=== PATIENT | male | born 1965 | race Caucasian/White ===

== ENCOUNTER 2017-06-05 11:34 | Inpatient (IN) | payer SELFPAY ==
[~2017-06-05] VITALS: Ht 172.7 cm; Wt 97.9 kg
[2017-06-05] VITALS (11 sets, daily range): BP systolic 66–122; BP diastolic 50–79; PULSE 87–109; RESP 20–38; TEMP 97.5–97.9; O2SAT 94–99
[~2017-06-05 11:34] MED LIST: TRAM50 PO
[2017-06-05] MEDS ORDERED: SODIUM CHLOR 0.9% 1000 ML INJ 1,000 ML IV SCH ×3 (12:02→13:26)
[2017-06-05] MEDS ORDERED: NOREPINEPHRINE 4 MG/4 ML AMP ONE (12:13)
[2017-06-05] MEDS ORDERED: PANTOPRAZOLE SODIUM 40 MG VIAL IVP ONE (12:15)
[2017-06-05] MEDS ORDERED: SODIUM CHLORIDE 0.9% FLUSH 10 ML FLUSH IVF PRN (12:15)
[2017-06-05] MEDS ORDERED: NITROGLYCERIN 0.4 MG SL 25 TABS/BTL SL SCH (12:15)
[2017-06-05] MEDS ORDERED: ASPIRIN 81 MG CHEW TAB PO ONE (12:15)
[2017-06-05] MEDS ORDERED: DOPamine 400 MG/250 ML INJ 250 ML ONE (12:16)
[2017-06-05] MEDS: NOREPINEPHRINE INJ 4 MG in SODIUM CHLOR 0.9% 250 ML INJ 246 ML IV PRN ×2 (12:20→22:09)
--- NOTE | 2017-06-05 12:23 | PD ---
HPI Chief Complaint: General Weakness Time Seen by Provider: 11:59 Travel History International Travel<30 days: No Contact w/Intl Traveler<30days: No Traveled to known affect area: No History of Present Illness HPI This is a 52-year-old male who reports a history of hypertension. He presents with his by private vehicle for evaluation. Reports that since yesterday morning he has felt generalized weakness and fatigue. His says that he spent most of the day laying in bed. Last night he began developing a substernal chest burning sensation when he describes as heartburn and assume that it was heartburn. He took some Tums which seemed to help a little bit. He reports that throughout the night and this morning he had intermittent pain. He reports that at some point in the middle the night he had a nosebleed from his left nostril which lasted for a few hours and is currently resolved. He is continued to feel generalized weakness and tiredness and this is what prompted evaluation. He is currently complaining of chest burning sensation, shortness of breath, some nausea. He denies abdominal pain, black or tarry stools. He reports that he occasionally uses [id number] Tums, ibuprofen, Tylenol products. PFSH Past Medical History Diminished Hearing: No GERD: Yes Inguinal Hernia: Yes Past Surgical History Abdominal Surgery: Yes (2 x hernia) Tonsillectomy: Yes Other Surgery: Yes (2 INGUINAL HERNIA SURGERIES APPROX. 2003) Social History Alcohol Use: No Tobacco Use: No Substance Use: Yes (IV meth) Allergies-Medications (Allergen,Severity, Reaction): Coded Allergies: No Known Allergies (Verified , 01/18/15) Reported Meds & Prescriptions Reported Meds & Active Scripts Active No Active Prescriptions or Reported Medications Review of Systems Except as stated in HPI: all other systems reviewed are Neg Physical Exam Narrative GENERAL: This is a ill-appearing middle-aged male. SKIN: Warm and dry. HEAD: Atraumatic. Normocephalic. EYES: Pupils equal and round. No scleral icterus. No injection or drainage. ENT: No nasal bleeding or discharge. Mucous membranes pink and moist. NECK: Trachea midline. No JVD. CARDIOVASCULAR: Regular rate and rhythm. No murmur appreciated. RESPIRATORY: No accessory muscle use. Clear to auscultation. Breath sounds equal bilaterally. GASTROINTESTINAL: Abdomen soft, non-tender, nondistended. Hepatic and splenic margins not palpable. MUSCULOSKELETAL: No obvious deformities. No clubbing. No cyanosis. No edema. NEUROLOGICAL: Awake and alert. No obvious cranial nerve deficits. Motor grossly within normal limits. Normal speech. PSYCHIATRIC: Appropriate mood and affect; insight and judgment normal. Data Data Last Documented VS Vital Signs Date Time Temp Pulse Resp B/P (MAP) Pulse Ox O2 Delivery O2 Flow Rate FiO2 06/05/17 13:10 96 90/60 (70) 06/05/17 12:16 28 96 06/05/17 12:07 Nasal Cannula 2.00 Orders Orders Electrocardiogram (06/05/17 12:02) Ckmb (Isoenzyme) Profile (06/05/17 12:02) Complete Blood Count With Diff (06/05/17 12:02) Magnesium (Mg) (06/05/17 12:02) Prothrombin Time / Inr (Pt) (06/05/17 12:02) Act Partial Throm Time (Ptt) (06/05/17 12:02) Troponin I (06/05/17 12:02) Chest, Single Ap (06/05/17 12:02) Ecg Monitoring (06/05/17 12:02) Bilateral Bp Monitoring (06/05/17 12:02) Iv Access Insert/Monitor (06/05/17 12:02) Oximetry (06/05/17 12:02) Oxygen Administration (06/05/17 12:02) Aspirin Chew (Aspirin Chew) (06/05/17 12:15) Sodium Chloride 0.9% Flush (Ns Flush) (06/05/17 12:15) Nitroglycerin Sl (Nitrostat Sl) (06/05/17 12:15) Type And Screen (06/05/17 12:02) Lactic Acid (06/05/17 12:02) Sodium Chlor 0.9% 1000 Ml Inj (Ns 1000 M (06/05/17 12:02) Comprehensive Metabolic Panel (06/05/17 12:02) Lipase (06/05/17 12:02) Pantoprazole Inj (Protonix Inj) (06/05/17 12:15) Norepinephrine Inj (Levophed Inj) (06/05/17 12:13) Dopamine 400 Mg/250 Ml Inj (Dopamine 400 (06/05/17 12:16) I-Stat Profile (06/05/17 12:18) Sodium Chlor 0.9% 1000 Ml Inj (Ns 1000 M (06/05/17 12:18) Red Blood Cells (Rbc) (06/05/17 12:19) Blood Product Administration (06/05/17 12:19) Ct Thorax/ Chest Wo Iv Contras (06/05/17 ) Ct Abd/Pel W/O Iv Contrast (06/05/17 ) Ct Brain W/O Iv Contrast(Rout) (06/05/17 ) Urinalysis - C+S If Indicated (06/05/17 12:44) Blood Culture (06/05/17 12:44) Vancomycin Inj (Vancomycin Inj) (06/05/17 12:45) Piperacil-Tazo 3.375 Gm Premix (Zosyn 3. (06/05/17 12:45) ^ Infusion (06/05/17 ) Norepinephrine Inj (Levophed Inj) (06/05/17 13:00) Terbutaline Inj (Brethine Inj) (06/05/17 13:00) Piperacil-Tazo 2.25 Gm Premix (Zosyn 2.2 (06/05/17 13:00) CKMB (06/05/17 12:20) CKMB% (06/05/17 12:20) Admit Order (Ed Use Only) (06/05/17 13:10) Labs Laboratory Tests Test 06/05/17 12:20 White Blood Count 16.3 TH/MM3 Red Blood Count 5.03 MIL/MM3 Hemoglobin 16.2 GM/DL Bedside Hemoglobin 15.3 G/DL Hematocrit 46.3 % Bedside Hematocrit 45.0 % Mean Corpuscular Volume 92.1 FL Mean Corpuscular Hemoglobin 32.2 PG Mean Corpuscular Hemoglobin Concent 35.0 % Red Cell Distribution Width 12.8 % Platelet Count 109 TH/MM3 Mean Platelet Volume 8.4 FL Neutrophils (%) (Auto) 94.2 % Lymphocytes (%) (Auto) 2.5 % Monocytes (%) (Auto) 3.3 % Eosinophils (%) (Auto) 0.0 % Basophils (%) (Auto) 0.0 % Neutrophils # (Auto) 15.3 TH/MM3 Lymphocytes # (Auto) 0.4 TH/MM3 Monocytes # (Auto) 0.5 TH/MM3 Eosinophils # (Auto) 0.0 TH/MM3 Basophils # (Auto) 0.0 TH/MM3 CBC Comment AUTO DIFF Differential Total Cells Counted 100 Neutrophils % (Manual) 60 % Band Neutrophils % 35 % Lymphocytes % 2 % Monocytes % 1 % Neutrophils # (Manual) 15.8 TH/MM3 Metamyelocytes 1 % Myelocytes 1 % Differential Comment FINAL DIFF MANUAL Platelet Estimate LOW Platelet Morphology Comment NORMAL Red Cell Morphology Comment NORMAL Prothrombin Time 13.0 SEC Prothromb Time International Ratio 1.3 RATIO Activated Partial Thromboplast Time 30.8 SEC Bedside Sodium 134 MMOL/L Blood Urea Nitrogen 42 MG/DL Creatinine 5.16 MG/DL Random Glucose 85 MG/DL Total Protein 7.2 GM/DL Albumin 3.3 GM/DL Calcium Level 8.7 MG/DL Magnesium Level 1.6 MG/DL Alkaline Phosphatase 109 U/L Aspartate Amino Transf (AST/SGOT) 130 U/L Alanine Aminotransferase (ALT/SGPT) 154 U/L Total Bilirubin 2.1 MG/DL Sodium Level 135 MEQ/L Potassium Level 4.6 MEQ/L Chloride Level 101 MEQ/L Carbon Dioxide Level 19.5 MEQ/L Bedside Potassium 4.6 MMOL/L Bedside Chloride 102 MMOL/L Anion Gap 15 MEQ/L Bedside Blood Urea Nitrogen 42 MG/DL Bedside Creatinine 5.3 MG/DL Estimat Glomerular Filtration Rate 12 ML/MIN Bedside Glucose 90 MG/DL Lactic Acid Level 2.7 mmol/L Total Creatine Kinase 935 U/L Creatine Kinase MB 8.0 NG/ML Creatine Kinase MB % 0.9 % Troponin I 0.15 NG/ML Lipase 99 U/L MDM Medical Decision Making Medical Screen Exam Complete: Yes Emergency Medical Condition: Yes Medical Record Reviewed: Yes Differential Diagnosis Aortic dissection, acute coronary syndrome, pulmonary embolism, pneumothorax, hemothorax, pleural effusion, dehydration, acute anemia Narrative Course The patient was noted to be markedly hypotensive in triage with a 66/51 left arm blood pressure. Upon arriving in his ED room his blood pressure was checked in the right arm and was 101/60. Unable to obtain a left arm blood pressure. The patient was placed on ECG monitoring pulse oximetry. A 12-lead EKG was obtained revealing sinus tachycardia with a rate of 101. No STEMI. Unable to establish peripheral IV line, Dr. Yanez placed a central line in the right femoral vein, please see his procedural note. Blood pressure was rechecked, right arm is 122/50, left arm is 89/55. the patient was started on 2 L of IV fluid bolus. Given the discrepancy in blood pressure levels, initially a CTA of the aorta was ordered. I stats were obtained revealing a creatinine over [address] order was changed to CT of the thorax and abdomen and pelvis without contrast. Started on Levophed drip. Upon further questioning the patient admits that he uses IV methamphetamines occasionally, most recently yesterday. Lab work is been reviewed. He does have leukocytosis with WBC count of 16.3, 94% neutrophils. Lactic acid 2.7, BUN 42, creatinine 5.16, the patient was given IV vancomycin and Zosyn for broad -spectrum antibiotic coverage. CT brain is normal. Troponin 0 0.15. Total CK is 935. AST 130 ALT 154 total bilirubin 2.1. patient will be admitted to the category analyst. Sepsis Criteria SIRS Criteria (2 or more): WBC > 12329, < 4000 or > 10% bands Severe Sepsis (+one): Hypotension, Acute Oliguria/Renal Failure Diagnosis Primary Impression: Septic shock Additional Impressions: Chest pain Renal failure IV drug user Elevated troponin Admitting Information Admitting Physician Requests: Admit Scripts No Active Prescriptions or Reported Meds Elfego Feliciano Jun 05, 2017 12:23
[2017-06-05 12:38] LABS: AUTOMATED NEUTROPHIL # 15.3 TH/MM3 (1.8-7.7); HEMATOCRIT 46.3 % (39.0-51.0); HEMOGLOBIN 16.2 GM/DL (13.0-17.0); LYMPH % 2.5 % (9.0-44.0); LYMPHOCYTE # 0.4 TH/MM3 (1.0-4.8); MEAN CELL VOLUME 92.1 FL (80.0-100.0); MEAN CORPUSCULAR HEMOGLOBIN 32.2 PG (27.0-34.0); MEAN PLATELET VOLUME 8.4 FL (7.0-11.0); MONO % 3.3 % (0.0-8.0); MONOCYTE # 0.5 TH/MM3 (0-0.9); NEUT % 94.2 % (16.0-70.0); PLATELET COUNT 109 TH/MM3 (150-450); RED BLOOD COUNT 5.03 MIL/MM3 (4.50-5.90); RED CELL DISTRIBUTION WIDTH 12.8 % (11.6-17.2); WHITE BLOOD COUNT 16.3 TH/MM3 (4.0-11.0)
[2017-06-05] MEDS ORDERED: VANCOMYCIN INJ 1,000 MG in SODIUM CHLOR 0.9% 250 ML INJ 250 ML IV ONE (12:45)
[2017-06-05] MEDS ORDERED: PIPERACIL-TAZO 3.375 GM PREMIX 50 ML IV ONE (12:45)
[2017-06-05 12:46] LABS: INTERNATIONAL NORMALIZED RATIO 1.3 RATIO
--- NOTE | 2017-06-05 12:49 | RADRPT ---
EXAM DATE/TIME: 06/05/2017 12:32 [facility] COMPARISON: CT BRAIN W/O CONTRAST, January 18, 2015, 17:43. INDICATIONS : Altered mental status. RADIATION DOSE: 47.35 CTDIvol (mGy) MEDICAL HISTORY : Non-responsive. SURGICAL HISTORY : Non-responsive. ENCOUNTER: Initial ACUITY: 1 day PAIN SCALE: 0/10 LOCATION: cranial TECHNIQUE: Multiple contiguous axial images were obtained of the head. Using automated exposure control and adj ustment of the mA and/or kV according to patient size, radiation dose was kept as low as reasonably a chievable to obtain optimal diagnostic quality images. DICOM format image data is available electro nically for review and comparison. FINDINGS: CEREBRUM: The ventricles are normal for age. No evidence of midline shift, mass lesion, hemorrhage or acute in farction. No extra-axial fluid collections are seen. POSTERIOR FOSSA: The cerebellum and brainstem are intact. The 4th ventricle is midline. The cerebellopontine angle i s unremarkable. EXTRACRANIAL: The visualized portion of the orbits is intact. SKULL: The calvaria is intact. No evidence of skull fracture. CONCLUSION: Stable negative noncontrast head CT. Marlon Jo MD on June 05, 2017 at 12:47 Board Certified Radiologist. This report was verified electronically.
[2017-06-05 12:58] LABS: ALBUMIN 3.3 GM/DL (3.4-5.0); ALT (GPT) 154 U/L (12-78); AST (GOT) 130 U/L (15-37); BICARBONATE 19.5 MEQ/L (21.0-32.0); BLOOD UREA NITROGEN 42 MG/DL (7-18); CALCIUM 8.7 MG/DL (8.5-10.1); CHLORIDE 101 MEQ/L (98-107); CREATININE 5.16 MG/DL (0.60-1.30); GLOMERULAR FILTRATION RATE 12 ML/MIN (>89); GLUCOSE,RANDOM 85 MG/DL (74-106); MAGNESIUM 1.6 MG/DL (1.5-2.5); SODIUM (NA) 135 MEQ/L (136-145)
--- NOTE | 2017-06-05 12:58 | RADRPT ---
EXAM DATE/TIME: 06/05/2017 12:35 [facility] COMPARISON: CHEST SINGLE AP, January 18, 2015, 17:15. INDICATIONS : Generalized weakness and chest pain. RADIATION DOSE: 19.69 CTDIvol (mGy) ; Combined studies - Thorax/Abdomen/Pelvis MEDICAL HISTORY : Non-responsive. SURGICAL HISTORY : Non-responsive. ENCOUNTER: Initial ACUITY: 1 day PAIN SCALE: 3/10 LOCATION: chest TECHNIQUE: Volumetric scanning of the chest was performed. Using automated exposure control and adjustment of t he mA and/or kV according to patient size, radiation dose was kept as low as reasonably achievable to obtain optimal diagnostic quality images. DICOM format image data is available electronically for r eview and comparison. Follow-up recommendations for detected pulmonary nodules are based at a minimum on nodule size and pa tient risk factors according to Fleischner Society Guidelines. FINDINGS: LUNGS: There is no consolidation or pneumothorax. No concerning pulmonary nodule is visualized. There is ap parent atelectasis in the dependent portions of the lung bases. PLEURAE: There is no pleural thickening or pleural effusion. MEDIASTINUM: The heart and great vessels demonstrate no acute abnormality. There is no mediastinal or hilar lymph adenopathy. Small amount of air is noted in the anterior right ventricle and aorta. AXILLAE: Within normal limits. No lymphadenopathy. MUSCULOSKELETAL: Within normal limits for patient age. MISCELLANEOUS: The visualized upper abdominal organs demonstrate no acute abnormality. Mild hepatic steatosis is pre sent. CONCLUSION: 1. Apparent atelectasis in the tension portions of the lungs with no focal consolidation or mass. 2. Small amount of gas in the anterior right ventricle and aorta likely iatrogenic. 3. Mild hepatic steatosis. Marlon Jo MD on June 05, 2017 at 12:54 Board Certified Radiologist. This report was verified electronically.
--- NOTE | 2017-06-05 12:59 | PD ---
Physical Exam Narrative Patient was seen by me and my patient support assistant. Patient states that he was shooting up IV meth last night. Data Data Last Documented VS Vital Signs Date Time Temp Pulse Resp B/P (MAP) Pulse Ox O2 Delivery O2 Flow Rate FiO2 06/05/17 12:21 87 89/55 (66) 06/05/17 12:16 28 96 06/05/17 12:07 Nasal Cannula 2.00 Orders Orders Electrocardiogram (06/05/17 12:02) Ckmb (Isoenzyme) Profile (06/05/17 12:02) Complete Blood Count With Diff (06/05/17 12:02) Magnesium (Mg) (06/05/17 12:02) Prothrombin Time / Inr (Pt) (06/05/17 12:02) Act Partial Throm Time (Ptt) (06/05/17 12:02) Troponin I (06/05/17 12:02) Chest, Single Ap (06/05/17 12:02) Ecg Monitoring (06/05/17 12:02) Bilateral Bp Monitoring (06/05/17 12:02) Iv Access Insert/Monitor (06/05/17 12:02) Oximetry (06/05/17 12:02) Oxygen Administration (06/05/17 12:02) Aspirin Chew (Aspirin Chew) (06/05/17 12:15) Sodium Chloride 0.9% Flush (Ns Flush) (06/05/17 12:15) Nitroglycerin Sl (Nitrostat Sl) (06/05/17 12:15) Type And Screen (06/05/17 12:02) Lactic Acid (06/05/17 12:02) Sodium Chlor 0.9% 1000 Ml Inj (Ns 1000 M (06/05/17 12:02) Comprehensive Metabolic Panel (06/05/17 12:02) Lipase (06/05/17 12:02) Pantoprazole Inj (Protonix Inj) (06/05/17 12:15) Norepinephrine Inj (Levophed Inj) (06/05/17 12:13) Dopamine 400 Mg/250 Ml Inj (Dopamine 400 (06/05/17 12:16) I-Stat Profile (06/05/17 12:18) Sodium Chlor 0.9% 1000 Ml Inj (Ns 1000 M (06/05/17 12:18) Red Blood Cells (Rbc) (06/05/17 12:19) Blood Product Administration (06/05/17 12:19) Ct Thorax/ Chest Wo Iv Contras (06/05/17 ) Ct Abd/Pel W/O Iv Contrast (06/05/17 ) Ct Brain W/O Iv Contrast(Rout) (06/05/17 ) Urinalysis - C+S If Indicated (06/05/17 12:44) Blood Culture (06/05/17 12:44) Vancomycin Inj (Vancomycin Inj) (06/05/17 12:45) Piperacil-Tazo 3.375 Gm Premix (Zosyn 3. (06/05/17 12:45) ^ Infusion (06/05/17 ) Norepinephrine Inj (Levophed Inj) (06/05/17 13:00) Terbutaline Inj (Brethine Inj) (06/05/17 13:00) Piperacil-Tazo 2.25 Gm Premix (Zosyn 2.2 (06/05/17 13:00) Labs Laboratory Tests Test 06/05/17 12:20 White Blood Count 16.3 TH/MM3 Red Blood Count 5.03 MIL/MM3 Hemoglobin 16.2 GM/DL Bedside Hemoglobin 15.3 G/DL Hematocrit 46.3 % Bedside Hematocrit 45.0 % Mean Corpuscular Volume 92.1 FL Mean Corpuscular Hemoglobin 32.2 PG Mean Corpuscular Hemoglobin Concent 35.0 % Red Cell Distribution Width 12.8 % Platelet Count 109 TH/MM3 Mean Platelet Volume 8.4 FL Neutrophils (%) (Auto) 94.2 % Lymphocytes (%) (Auto) 2.5 % Monocytes (%) (Auto) 3.3 % Eosinophils (%) (Auto) 0.0 % Basophils (%) (Auto) 0.0 % Neutrophils # (Auto) 15.3 TH/MM3 Lymphocytes # (Auto) 0.4 TH/MM3 Monocytes # (Auto) 0.5 TH/MM3 Eosinophils # (Auto) 0.0 TH/MM3 Basophils # (Auto) 0.0 TH/MM3 CBC Comment AUTO DIFF Prothrombin Time 13.0 SEC Prothromb Time International Ratio 1.3 RATIO Activated Partial Thromboplast Time 30.8 SEC Bedside Sodium 134 MMOL/L Blood Urea Nitrogen 42 MG/DL Creatinine 5.16 MG/DL Random Glucose 85 MG/DL Albumin 3.3 GM/DL Calcium Level 8.7 MG/DL Magnesium Level 1.6 MG/DL Aspartate Amino Transf (AST/SGOT) 130 U/L Alanine Aminotransferase (ALT/SGPT) 154 U/L Sodium Level 135 MEQ/L Potassium Level 4.6 MEQ/L Chloride Level 101 MEQ/L Carbon Dioxide Level 19.5 MEQ/L Bedside Potassium 4.6 MMOL/L Bedside Chloride 102 MMOL/L Anion Gap 15 MEQ/L Bedside Blood Urea Nitrogen 42 MG/DL Bedside Creatinine 5.3 MG/DL Estimat Glomerular Filtration Rate 12 ML/MIN Bedside Glucose 90 MG/DL Lactic Acid Level 2.7 mmol/L Lipase 99 U/L [facility] Supervised Visit with DANIELA: Yes Narrative Course Patient presented by private vehicle to the emergency room complains of generalized malaise and weakness, indigestion, nosebleed. Patient was dusky, hypotensive, altered mental status. Denies alcohol or drug abuse. Patient has history hypertension however not on any medication. Normal saline solution 2 L IV bolus. O2 2 L nasal cannula. Triple-lumen right femoral vein inserted. Vancomycin 1 g IV. Zosyn 2.25 g IV. Patient has stat CT scan of brain, chest and abdomen. Levophed IV drip started. Dopamine drip as necessary to keep the MAP above 65. 1300 p.m. Patient now admitted to IV drug abuse. Patient states that he was shooting up methamphetamine last night. Critical Care Narrative Aggregate critical care time was 60 minutes. Time to perform other separately billable procedures was not included in the critical care time. My time did not include minutes spent treating any other patients simultaneously or on activities that did not directly contribute to the patient's treatment. The services I provided to this patient were to treat and/or prevent clinically significant deterioration that could result in: I provided critical care services requiring my management, as noted below: Chart data review, documentation time, medication orders and management, vital sign assessments/reviewing monitor data, ordering and reviewing lab tests, ordering and interpreting/reviewing x-rays and diagnostic studies, care of the patient and discussion of the patient with the admitting physicians. Procedures Procedure Narrative CENTRAL VENOUS LINE: The site was prepped with Betadine and sterilely draped. It was infiltrated with 1% lidocaine plain. The deep vein was cannulated using normal Seldinger technique. A triple lumen central line was placed in the right femoral vein site and secured with simple interrupted suture. The site was sterilely dressed. The patient tolerated the procedure well. Diagnosis Primary Impression: Septic shock Additional Impression: IV drug abuse Scripts No Active Prescriptions or Reported Meds Misael Yanez MD Jun 05, 2017 12:59
[2017-06-05] MEDS ORDERED: TERBUTALINE INJ 1 MG/ML AMP SQ PRN (13:00)
[2017-06-05 13:02] LABS: ALKALINE PHOSPHATASE 109 U/L (45-117); TOTAL BILIRUBIN ADULT 2.1 MG/DL (0.2-1.0); TOTAL PROTEIN 7.2 GM/DL (6.4-8.2); TROPONIN I 0.15 NG/ML (0.02-0.05)
--- NOTE | 2017-06-05 13:03 | RADRPT ---
EXAM DATE/TIME: 06/05/2017 12:35 [facility] COMPARISON: No previous studies available for comparison. INDICATIONS : Weakness. ORAL CONTRAST: No oral contrast ingested. RADIATION DOSE: 19.69 CTDIvol (mGy) ; Combined studies - Thorax/Abdomen/Pelvis MEDICAL HISTORY : Non-responsive. SURGICAL HISTORY : Non-responsive. ENCOUNTER: Initial ACUITY: 1 day PAIN SCALE: 4/10 LOCATION: abdomen TECHNIQUE: Volumetric scanning of the abdomen and pelvis was performed. Using automated exposure control and ad justment of the mA and/or kV according to patient size, radiation dose was kept as low as reasonably achievable to obtain optimal diagnostic quality images. DICOM format image data is available electro nically for review and comparison. FINDINGS: LOWER LUNGS: The visualized lower lungs are clear except for apparent atelectasis in the dependent portions of the lung bases.. Small gamma gas is noted in the anterior right ventricle. LIVER: Homogeneous density without lesion. There is mild hepatic steatosis. There is no dilation of the bili santiago tree. No calcified gallstones. SPLEEN: Normal size without lesion. PANCREAS: Within normal limits. KIDNEYS: Normal in size and shape. There is no solid mass, stone, or hydronephrosis. There is a simple cyst e xtending off the posterior left kidney. ADRENAL GLANDS: Within normal limits. VASCULAR: There is no aortic aneurysm. BOWEL/MESENTERY: No oral contrast was given limiting sensitivity. There are scattered diverticuli greatest in the sigm oid colon. The stomach, small bowel, and colon demonstrate no acute abnormality. There is no free in traperitoneal air or fluid. ABDOMINAL WALL: Postsurgical changes are noted status post hernia repair with mesh in place. There is no abdominal wa ll hernia. RETROPERITONEUM: There is no lymphadenopathy. BLADDER: No wall thickening or mass. REPRODUCTIVE: Within normal limits. INGUINAL: There is no lymphadenopathy or hernia. MUSCULOSKELETAL: Within normal limits for patient age. CONCLUSION: 1. Mild diverticulosis with no definite inflammatory change. 2. Small amount of gas in the anterior right ventricle likely iatrogenic. 3. Mild hepatic steatosis. 4. Unremarkable gallbladder. 5. Apparent atelectasis in the dependent portions of the lung bases. Marlon oJ MD on June 05, 2017 at 13:00 Board Certified Radiologist. This report was verified electronically.
[2017-06-05 13:07] LABS: BANDS 35 % (0-6); LYMPHOCYTES 2 % (9-44); METAMYELOCYTES 1 % (0-1); MONOCYTES 1 % (0-8); MYELOCYTES 1 % (0-0); NEUTROPHIL # MANUAL DIFF 15.8 TH/MM3 (1.8-7.7); POLYS (SEG NEUTROPHILS) 60 % (16-70)
[2017-06-05] MEDS ORDERED: SODIUM CHLOR 0.9% 1000 ML INJ 1,000 ML IV ONE (13:45)
[2017-06-05] MEDS ORDERED: CHLORHEXIDINE GLUCONATE 2 % 1 PACK (2 CLOTHS) TOP PRN (13:45)
[2017-06-05] MEDS ORDERED: Vancomycin Consult Pharmacy 1 EA OTHER SCH (13:45)
[2017-06-05] MEDS ORDERED: NURSING INFORMATION XX SCH (13:45)
[2017-06-05] MEDS ORDERED: SODIUM CHLORID 0.9% 500 ML INJ 500 ML IV ONE (13:45)
--- NOTE | 2017-06-05 13:51 | RADRPT ---
EXAM DATE/TIME: 06/05/2017 13:01 [facility] COMPARISON: CHEST SINGLE AP, January 18, 2015, 17:15. INDICATIONS : Shortness of breath. MEDICAL HISTORY : None. SURGICAL HISTORY : None. ENCOUNTER: Initial ACUITY: 2 days PAIN SCORE: 0/10 LOCATION: Bilateral chest FINDINGS: A single view of the chest demonstrates the lungs to be symmetrically aerated without evidence of mas s, infiltrate or effusion. The cardiomediastinal contours are unremarkable. Osseous structures are intact. CONCLUSION: No acute disease. Fritz Huerta MD on June 05, 2017 at 13:49 Board Certified Radiologist. This report was verified electronically.
[2017-06-05] MEDS ORDERED: PIPERACIL-TAZO 2.25 GM PREMIX 50 ML IV ONE (14:00)
--- NOTE | 2017-06-05 14:02 | HHI.HP ---
HPI Service Critical Care Medicine Primary Care Physician No Primary Care Physician Admission Diagnosis Septic shock. Acute kidney injury. Elevated troponin. Diagnosis: Chief Complaint: Generalized weakness Travel History International Travel<30 Days: No Contact w/Intl Traveler <30 Da: No Traveled to Known Affected Are: No History of Present Illness 52-year-old gentleman with history of hypertension, now presents to ED complaining of generalized weakness, body aches and fatigue. Patient states that he is not feeling well over the last 2 days, worsening last night. He reports some substernal chest pain described as heartburn associated with fever , chills, some dry cough. Because of the worsening of symptoms he was brought in to the emergency room by his . On ED arrival, patient was profoundly hypotensive with systolic blood pressure in the 60s. He was given 2 L fluid bolus, an emergent femoral central line was placed and patient was started on norepinephrine. On routine labs he was found to have SANTOS and lactic acidosis. He was given vancomycin and Zosyn and [facility] was consulted for ICU admission. Of note, patient used methamphetamine last night. Patient was seen in ED, resting in bed, ill-appearing, complaining of chills. He is currently on norepinephrine infusion at 10 mics per minute. Review of Systems Constitutional: COMPLAINS OF: Diaphoretic episodes, Fatigue, Fever, Chills Eyes: DENIES: Blurred vision, Diplopia, Vision loss Ears, nose, mouth, throat: COMPLAINS OF: Epistaxis, DENIES: Hearing loss, Throat pain Respiratory: COMPLAINS OF: Cough, Shortness of breath, DENIES: Wheezing, Hemoptysis, Sputum production Cardiovascular: COMPLAINS OF: Chest pain, DENIES: Palpitations, Lower Extremity Edema Gastrointestinal: COMPLAINS OF: Diarrhea, DENIES: Abdominal pain, Black stools , Bloody stools, Constipation, Nausea, Vomiting Genitourinary: DENIES: Urinary frequency, Dysuria Musculoskeletal: COMPLAINS OF: Joint pain, Muscle aches Psychiatric: COMPLAINS OF: Anxiety, DENIES: Hallucinations, Agitation Past Family Social History Allergies: Coded Allergies: No Known Allergies (Verified Allergy, Unknown, 06/05/17) Physical Exam Vital Signs Vital Signs Date Time Temp Pulse Resp B/P (MAP) Pulse Ox O2 Delivery O2 Flow Rate FiO2 06/05/17 13:48 87 108/79 (89) 06/05/17 13:35 91 20 97/68 (78) 97 Nasal Cannula 2.00 06/05/17 13:10 96 90/60 (70) 06/05/17 12:21 87 89/55 (66) 06/05/17 12:20 87 102/57 06/05/17 12:19 97 122/50 (74) 06/05/17 12:16 28 96 06/05/17 12:07 98 Nasal Cannula 2.00 06/05/17 11:47 105 22 66/51 (56) 94 Physical Exam General - middle-aged gentleman, weak, ill-appearing HEENT - pupils equal, reactive, sclerae anicteric, neck supple, no nuchal rigidity, neck veins not distended, no carotid bruit CV - regular S1, S2, no murmurs Chest - clear b/l, good air entry, no wheezes Abdomen - soft, non-tender, non-distended, BS present, no hepatomegaly, no splenomegaly Skin - no rashes, no cyanosis Extremities - warm and well perfused, no edema, + peripheral pulses, no clubbing Neuro - awake, alert, oriented, motor 5 out of 5 overall extremities Laboratory Laboratory Tests Test 06/05/17 12:20 White Blood Count 16.3 Red Blood Count 5.03 Hemoglobin 16.2 Bedside Hemoglobin 15.3 Hematocrit 46.3 Bedside Hematocrit 45.0 Mean Corpuscular Volume 92.1 Mean Corpuscular Hemoglobin 32.2 Mean Corpuscular Hemoglobin Concent 35.0 Red Cell Distribution Width 12.8 Platelet Count 109 Mean Platelet Volume 8.4 Neutrophils (%) (Auto) 94.2 Lymphocytes (%) (Auto) 2.5 Monocytes (%) (Auto) 3.3 Eosinophils (%) (Auto) 0.0 Basophils (%) (Auto) 0.0 Neutrophils # (Auto) 15.3 Lymphocytes # (Auto) 0.4 Monocytes # (Auto) 0.5 Eosinophils # (Auto) 0.0 Basophils # (Auto) 0.0 CBC Comment AUTO DIFF Differential Total Cells Counted 100 Neutrophils % (Manual) 60 Band Neutrophils % 35 Lymphocytes % 2 Monocytes % 1 Neutrophils # (Manual) 15.8 Metamyelocytes 1 Myelocytes 1 Differential Comment FINAL DIFF MANUAL Platelet Estimate LOW Platelet Morphology Comment NORMAL Red Cell Morphology Comment NORMAL Prothrombin Time 13.0 Prothromb Time International Ratio 1.3 Activated Partial Thromboplast Time 30.8 Bedside Sodium 134 Blood Urea Nitrogen 42 Creatinine 5.16 Random Glucose 85 Total Protein 7.2 Albumin 3.3 Calcium Level 8.7 Magnesium Level 1.6 Alkaline Phosphatase 109 Aspartate Amino Transf (AST/SGOT) 130 Alanine Aminotransferase (ALT/SGPT) 154 Total Bilirubin 2.1 Sodium Level 135 Potassium Level 4.6 Chloride Level 101 Carbon Dioxide Level 19.5 Bedside Potassium 4.6 Bedside Chloride 102 Anion Gap 15 Bedside Blood Urea Nitrogen 42 Bedside Creatinine 5.3 Estimat Glomerular Filtration Rate 12 Bedside Glucose 90 Lactic Acid Level 2.7 Total Creatine Kinase 935 Creatine Kinase MB 8.0 Creatine Kinase MB % 0.9 Troponin I 0.15 Lipase 99 Result Diagram: 06/05/17 1220 06/05/17 1220 Imaging Last Impressions Chest X-Ray 06/05/17 1202 Signed Impressions: Service Date/Time: May 13:01 - CONCLUSION: No acute disease. Fritz Huerta MD Head CT 06/05/17 0000 Signed Impressions: Service Date/Time: May 12:32 - CONCLUSION: Stable negative noncontrast head CT. Marlon Jo MD Chest CT 06/05/17 0000 Signed Impressions: Service Date/Time: May 12:35 - CONCLUSION: 1. Apparent atelectasis in the tension portions of the lungs with no focal consolidation or mass. 2. Small amount of gas in the anterior right ventricle and aorta likely iatrogenic. 3. Mild hepatic steatosis. Marlon Jo MD Abdomen/Pelvis CT 06/05/17 0000 Signed Impressions: Service Date/Time: May 12:35 - CONCLUSION: 1. Mild diverticulosis with no definite inflammatory change. 2. Small amount of gas in the anterior right ventricle likely iatrogenic. 3. Mild hepatic steatosis. 4. Unremarkable gallbladder. 5. Apparent atelectasis in the dependent portions of the lung bases. Marlon Jo MD Septic Shock Reassessment Septic shock perfusion: reassessment completed Caprini VTE Risk Assessment Caprini VTE Risk Assessment: Mod/High Risk (score >= 2) Caprini Risk Assessment Model Point Value = 1 Point Value = 2 Point Value = 3 Point Value = 5 Age 41-60 Minor surgery BMI > 25 kg/m2 Swollen legs Varicose veins or History of unexplained or recurrent spontaneous Oral contraceptives or hormone replacement Sepsis (< 1 month) Serious lung disease, including pneumonia (< 1 month) Abnormal pulmonary function Acute myocardial infarction Congestive heart failure (< 1 month) History of inflammatory bowel disease Medical patient at bed rest Age 61-74 Arthroscopic surgery Major open surgery (> 45 min) Laparoscopic surgery (> 45 min) Malignancy Confined to bed (> 72 hours) Immobilizing plaster cast Central venous access Age >= 75 History of VTE Family history of VTE Factor V Leiden Prothrombin [id number] Lupus anticoagulant Anticardiolipin antibodies Elevated serum homocysteine Heparin-induced thrombocytopenia Other congenital or acquired thrombophilia Stroke (< 1 month) Elective arthroplasty Hip, pelvis, or leg fracture Acute spinal cord injury (< 1 month) Prophylaxis Regimen Total Risk Factor Score Risk Level Prophylaxis Regimen 0-1 Low Early ambulation 2 Moderate Order ONE of the following: *Sequential Compression Device (SCD) *Heparin 5000 units SQ BID 3-4 Higher Order ONE of the following medications: *Heparin 5000 units SQ TID *Enoxaparin/Lovenox 40 mg SQ daily (WT < 150 kg, CrCl > 30 mL/min) *Enoxaparin/Lovenox 30 mg SQ daily (WT < 150 kg, CrCl > 10-29 mL/min) *Enoxaparin/Lovenox 30 mg SQ BID (WT < 150 kg, CrCl > 30 mL/min) AND/OR *Sequential Compression Device (SCD) 5 or more Highest Order ONE of the following medications: *Heparin 5000 units SQ TID (Preferred with Epidurals) *Enoxaparin/Lovenox 40 mg SQ daily (WT < 150 kg, CrCl > 30 mL/min) *Enoxaparin/Lovenox 30 mg SQ daily (WT < 150 kg, CrCl > 10-29 mL/min) *Enoxaparin/Lovenox 30 mg SQ BID (WT < 150 kg, CrCl > 30 mL/min) AND *Sequential Compression Device (SCD) Assessment and Plan Assessment and Plan 1. Circulatory shock, likely septic 2. Unclear source of infection at this time but based on the history of IV drug use suspect bacteremia 3. SANTOS 4. Lactic acidosis 5. Small amount of air in the right ventricle and aorta - 6. Meth abuse 1. Give additional 1 L fluid bolus followed by maintenance IV fluids 2. Continue renal dose vancomycin and Zosyn 3. Send additional blood cultures 4. Serial lactic acid and check venous blood gas 5. Cardiothoracic consultation 6. Serial cardiac enzymes and echocardiogram 7. Monitor urine output 8. N.p.o. for now 9. If no improvement in renal function will consult nephrology 10. GI prophylaxis with pantoprazole 11. DVT prophylaxis with heparin Patient is critically ill with shock, SANTOS, lactic acidosis and he is at very high risk for further decompensation. I spent 33 minutes of critical care time, excluding procedures, managing fluids , pressors, antibiotics, reviewing data and ordering labs, discussing with nursing staff and family present at bedside. Addendum: Patient was reassessed on ICU arrival, feels better, norepinephrine drip currently at 8 mcg/min. Lactic acid at 2.4, trending down, troponin at 0.1. Additional fluid bolus is being given right now, serial labs ordered. Continue current management as mentioned above. Echo ordered and case discussed with cardiothoracic nurse practitioner. Chico Garland MD Jun 05, 2017 14:02
[2017-06-05] MEDS: PIPERACIL-TAZO 2.25 GM PREMIX 50 ML IV SCH ×2 (15:11→20:42)
[2017-06-05 15:50] LABS: LACTIC ACID SEPSIS PROTOCOL 2.4 mmol/L (0.4-2.0)
[2017-06-05] MEDS ORDERED: VANCOMYCIN 500 MG/NS 100 ML IV ONE ×2 (16:00)
--- NOTE | 2017-06-05 17:09 | MB ---
cc: Eva Feldman Jacqueline R ARNP DATE: 06/05/2017 HISTORY OF PRESENT ILLNESS: A 52-year-old male who presented to the emergency room brought in by his for generalized weakness, body aches and fatigue, not feeling well over the past couple of days, worse last night. He also reported significant heartburn, some chest discomfort associated with fevers and chills. Upon arrival to the emergency department, he was found to be profoundly hypotensive, systolic pressures in the 60s. He was given 2 liters of fluid and an additional liter and a half and also had a femoral venous catheter placed and resuscitated with IV fluids. Lactic acid was 2.7. He was given IV vancomycin and Zosyn and was recommended for critical care admission. We were called by the critical care team to evaluate. The patient apparently has a history of IV drug use for the last 2 years off and on. He did admit to injecting IV methamphetamines into his right antecubital. He said he went into a local drug store and purchased some diabetic insulin syringes with a small needle, the 1 mL syringe, and injected himself with the medication. He said it was a new syringe, had not been used prior. He also made sure there was no air in the syringe; however, on chest CT evaluation there was a small amount of air in the anterior right ventricle and aorta, likely iatrogenic. The patient at this time still complains of having significant heartburn, not feeling well. He remains on IV fluids and Levophed at 10 mcg. The patient has no documented medical history other than he states he had high blood pressure, which was diagnosed when he was incarcerated 2 years ago. PAST MEDICAL HISTORY: He had left hernia repair. ALLERGIES: HE HAS NO KNOWN ALLERGIES MEDICATIONS: He takes no home medications. FAMILY HISTORY: Mother and father both alive, both have diabetes. SOCIAL HISTORY: He is with 1 child, works in sales retail. Denies any alcohol or tobacco. REVIEW OF SYSTEMS: As above in the HPI. Other 12 systems are unremarkable. PHYSICAL EXAMINATION: VITAL SIGNS: Blood pressure initially was documented as 66/50 with a heart rate of 105, currently on exam is 108/70 with a heart rate of 87, temperature now is 97.7. He is on O2 at 2 liters. GENERAL: The patient is awake, alert, somewhat ill appearing. HEENT: Head is normocephalic, atraumatic. Oral mucosa pink, moist. NECK: Supple. No JVD. CARDIOVASCULAR: Heart sounds S1, S2. Regular rate and rhythm. No rubs, murmurs, or gallops. LUNGS: Diminished in the bases, otherwise, clear to auscultation. He has track bush on both of his arms, especially on the right antecubital. ABDOMEN: Soft, nontender. No masses or organomegaly. EXTREMITIES: No cyanosis, clubbing, or edema. LABORATORY DATA: Shows hemoglobin 16, hematocrit of 46, white cell count of 16, platelet count of 109. Sodium 134, potassium 4.6, BUN of 42, creatinine 5.16. AST 130, ALT 154. Troponin 0.10, albumin 3.3. INR 1.3. Blood cultures pending. IMAGING STUDIES: CT as above. The abdominal CT - mild diverticulosis, small amount of air in the anterior right ventricle. ASSESSMENT AND PLAN: 1. This is a 52-year-old male with acute sepsis, lactic acidosis, questionable probable bacteremia, septic shock, status post IV fluid resuscitation. Also, on pressors. 2. IV drug use recently from yesterday, now with a CT scan showing some small amount of air in the anterior right ventricle, probable iatrogenic from the use of the IV drugs and the syringe with probable air. At this time, we will monitor closely. Further plan per Dr. Chika Ramirez. Continue IV antibiotics and resuscitation measures. MIKHAIL Grant MD JRT/ , 04:47 PM , 05:08 PM
[2017-06-05] MEDS: oxyCODONE/ACETAMINOPHEN 5 MG/325 MG TAB PO PRN ×2 (17:19→23:03)
[2017-06-05] MEDS: HEPARIN SODIUM - SQ 10,000 UNITS/ML VIAL SQ SCH (17:19)
[2017-06-05 17:21] LABS: AMORPHOUS SEDIMENT, URINE RARE; BACTERIA, URINE OCC /hpf; BILIRUBIN, URINE NEG (NEG); BLOOD, URINE SMALL (NEG); GLUCOSE,URINE NEG (NEG); HYALINE CAST, URINE 7 /lpf (RARE); KETONE, URINE NEG (NEG); MUCUS URINE FEW /lpf (OCC); NITRITE,URINE NEG (NEG); PH, URINE 5.5 (5.0-8.5); SQUAMOUS EPITHELIAL CELL URINE 2 /hpf (0-5); URINE COLOR YELLOW (YELLW/STRAW); URINE LEUKOCYTE ESTERASE NEG (NEG)
[2017-06-05] MEDS: SODIUM CHLOR 0.9% 1000 ML INJ 1,000 ML IV SCH ×2 (17:51→21:45)
[2017-06-05 20:56] LABS: LACTIC ACID SEPSIS PROTOCOL 2.7 mmol/L (0.4-2.0)
[2017-06-05 20:58] LABS: ALBUMIN 2.7 GM/DL (3.4-5.0); BICARBONATE 19.6 MEQ/L (21.0-32.0); CALCIUM 7.2 MG/DL (8.5-10.1); CALCIUM-PROTEIN CORRECTED 7.9 MG/DL (8.5-10.1); CREATININE 3.78 MG/DL (0.60-1.30); TOTAL BILIRUBIN ADULT 2.4 MG/DL (0.2-1.0); TOTAL PROTEIN 5.8 GM/DL (6.4-8.2)
[2017-06-06] VITALS (12 sets, daily range): BP systolic 89–134; BP diastolic 50–83; PULSE 100–114; RESP 17–37; TEMP 98.2–98.8; O2SAT 93–99
[2017-06-06] MEDS: PIPERACIL-TAZO 2.25 GM PREMIX 50 ML IV SCH ×4 (02:37→20:47)
[2017-06-06] MEDS: SODIUM CHLOR 0.9% 1000 ML INJ 1,000 ML IV SCH (02:39)
[2017-06-06] MEDS: CHLORHEXIDINE GLUCONATE 2 % 1 PACK (2 CLOTHS) TOP SCH (04:00)
[2017-06-06] MEDS: HEPARIN SODIUM - SQ 10,000 UNITS/ML VIAL SQ SCH ×2 (05:23→17:56)
[2017-06-06] MEDS: oxyCODONE/ACETAMINOPHEN 5 MG/325 MG TAB PO PRN ×5 (05:23→22:06)
[2017-06-06 06:01] LABS: BASOPHIL % 0.1 % (0.0-2.0); EOSINOPHIL # 0.2 TH/MM3 (0-0.4); EOSINOPHIL % 1.5 % (0.0-4.0); HEMATOCRIT 37.2 % (39.0-51.0); HEMOGLOBIN 13.3 GM/DL (13.0-17.0); LYMPH % 6.9 % (9.0-44.0); LYMPHOCYTE # 0.8 TH/MM3 (1.0-4.8); MEAN CELL VOLUME 91.2 FL (80.0-100.0); MEAN CORPUSCULAR HEMOGLOBIN 32.7 PG (27.0-34.0); MEAN CORPUSCULAR HGB CONC 35.9 % (32.0-36.0); MEAN PLATELET VOLUME 8.5 FL (7.0-11.0); MONO % 4.8 % (0.0-8.0); MONOCYTE # 0.6 TH/MM3 (0-0.9); NEUT % 86.7 % (16.0-70.0); PLATELET COUNT 80 TH/MM3 (150-450); RED BLOOD COUNT 4.08 MIL/MM3 (4.50-5.90); RED CELL DISTRIBUTION WIDTH 12.9 % (11.6-17.2); WHITE BLOOD COUNT 11.5 TH/MM3 (4.0-11.0)
[2017-06-06 06:05] LABS: LACTIC ACID SEPSIS PROTOCOL 2.3 mmol/L (0.4-2.0)
[2017-06-06 06:36] LABS: ALBUMIN 2.6 GM/DL (3.4-5.0); CALCIUM 7.2 MG/DL (8.5-10.1); CALCIUM-PROTEIN CORRECTED 7.9 MG/DL (8.5-10.1); CREATININE 2.74 MG/DL (0.60-1.30); MAGNESIUM 1.4 MG/DL (1.5-2.5); PHOSPHORUS 2.1 MG/DL (2.5-4.9); RANDOM VANCOMYCIN 10.8 COMMENT; TOTAL BILIRUBIN ADULT 2.6 MG/DL (0.2-1.0); TOTAL PROTEIN 5.8 GM/DL (6.4-8.2); TROPONIN I 0.1 NG/ML (0.02-0.05)
[2017-06-06] MEDS: PANTOPRAZOLE SODIUM 40 MG VIAL IV PUSH SCH (08:13)
[2017-06-06 08:17] LABS: BANDS 21 % (0-6); LYMPHOCYTES 5 % (9-44); METAMYELOCYTES 13 % (0-1); MONOCYTES 5 % (0-8); NEUTROPHIL # MANUAL DIFF 10.4 TH/MM3 (1.8-7.7); POLYS (SEG NEUTROPHILS) 56 % (16-70)
[2017-06-06 08:18] LABS: TOXIC GRANULATION 1+ (NORMAL); TOXIC VACUOLATION PRESENT (NONE SEEN)
--- NOTE | 2017-06-06 08:39 | PD.CONS ---
HPI Consult Requested By Primary Care Physician No Primary Care Physician History of Present Illness 52-year-old male who presented for generalized malaise, weakness, body aches, fatigue, and chills. Patient was found to have findings consistent with septic shock including hypotension, acute renal and liver failure failure, lactic acidosis. The patient was also found to have minimal elevation of troponin and for this we are consulted. Troponins overnight are 0.15, 0.10, 0.10, 0.10. The patient denies any chest pain or shortness of breath. He states he is feeling much better today than he did upon admission. His only complaint at this time is wrist pain. Patient symptoms are suspected to be secondary to bacteremia from IVDA. The patient was also incidentally found to have a small amount of gas in the anterior right ventricle and aorta seen on chest CT and for this cardiothoracic surgery has been consulted. His EKG shows sinus tachycardia with no evidence of ischemic changes. (Khanh Montano) Review of Systems Negative except as stated in HPI (Khanh Montano) Past Family Social History Allergies: Coded Allergies: No Known Allergies (Verified Allergy, Unknown, 06/05/17) Past Medical History History of hypertension in the past Past Surgical History Left hernia repair Reported Medications Reported Meds & Active Scripts Active No Active Prescriptions or Reported Medications Active Ordered Medications Current Medications Medications (Trade) Dose Ordered Sig/Haley Route Start Time Stop Time Status Last Admin (NS Flush) 2 ml UNSCH PRN IVF 06/05/17 12:15 Norepinephrine Bitartrate 4 mg/ Sodium Chloride 250 ml @ 7.5 mls/hr TITRATE PRN IV 06/05/17 13:00 06/05/17 22:09 (Brethine Inj) 1 mg UNSCH PRN SQ 06/05/17 13:00 (Protonix Inj) 40 mg DAILY IV PUSH 06/06/17 09:00 06/06/17 08:13 (Heparin Inj) 5,000 units Q12H SQ 06/05/17 18:00 06/06/17 05:23 Miscellaneous Information 1 Q361D XX 06/05/17 13:45 (Chlorhexidine 2% Cloth) 3 pack Taper DAILY@04 TOP 06/06/17 04:00 06/02/18 03:59 06/06/17 04:00 (Chlorhexidine 2% Cloth) 3 pack UNSCH PRN TOP 06/05/17 13:45 Pharmacy Profile Note 0 ml @ 0 mls/hr UNSCH OTHER 06/05/17 13:45 Piperacillin Sod/ Tazobactam Sod 50 ml @ 100 mls/hr Q6H IV 06/05/17 15:00 06/06/17 08:12 Sodium Chloride 1,000 ml @ 125 mls/hr Q8H IV 06/05/17 13:45 06/06/17 02:39 (Percocet 5-325 Mg) 1 tab Q6H PRN PO 06/05/17 17:00 06/06/17 05:23 Family History Mother and father with diabetes Social History Patient had admitted to IV amphetamine use (Khanh Montano) Physical Exam Vital Signs Vital Signs Date Time Temp Pulse Resp B/P (MAP) Pulse Ox O2 Delivery O2 Flow Rate FiO2 06/06/17 06:00 107 06/06/17 04:00 98.5 107 34 93/50 (64) 93 06/06/17 04:00 107 06/06/17 02:00 106 06/06/17 00:15 104 107/53 06/06/17 00:00 104 06/06/17 00:00 104 109/59 06/06/17 00:00 98.2 104 17 109/59 (76) 99 06/05/17 23:45 98 109/75 06/05/17 23:15 100 106/61 06/05/17 23:00 100 107/52 06/05/17 22:09 101 96/57 06/05/17 22:00 105 06/05/17 20:00 103 06/05/17 20:00 97.9 103 38 117/58 (77) 95 06/05/17 19:00 101 102/56 06/05/17 18:00 103 06/05/17 17:00 109 06/05/17 17:00 97.5 109 32 120/77 (91) 99 06/05/17 13:48 87 108/79 (89) 06/05/17 13:35 91 20 97/68 (78) 97 Nasal Cannula 2.00 06/05/17 13:10 96 90/60 (70) 06/05/17 12:21 87 89/55 (66) 06/05/17 12:20 87 102/57 06/05/17 12:19 97.7 97 122/50 (74) 06/05/17 12:16 28 96 06/05/17 12:07 98 Nasal Cannula 2.00 06/05/17 11:47 105 22 66/51 (56) 94 Physical Exam GENERAL: Well-developed well-nourished. NECK: No carotid bruits. No JVD. CARDIOVASCULAR: Slightly tachycardic rate rate and regular rhythm. No murmur appreciated. RESPIRATORY: Slightly tachypnea but appears to be in no acute distress. Clear to auscultation. Breath sounds equal bilaterally. MUSCULOSKELETAL: No clubbing or cyanosis. No edema. NEUROLOGICAL: Awake and alert. Normal speech. Laboratory Laboratory Tests Test 06/05/17 12:20 06/05/17 13:43 06/05/17 15:00 06/05/17 16:30 White Blood Count 16.3 Red Blood Count 5.03 Hemoglobin 16.2 Bedside Hemoglobin 15.3 Hematocrit 46.3 Bedside Hematocrit 45.0 Mean Corpuscular Volume 92.1 Mean Corpuscular Hemoglobin 32.2 Mean Corpuscular Hemoglobin Concent 35.0 Red Cell Distribution Width 12.8 Platelet Count 109 Mean Platelet Volume 8.4 Neutrophils (%) (Auto) 94.2 Lymphocytes (%) (Auto) 2.5 Monocytes (%) (Auto) 3.3 Eosinophils (%) (Auto) 0.0 Basophils (%) (Auto) 0.0 Neutrophils # (Auto) 15.3 Lymphocytes # (Auto) 0.4 Monocytes # (Auto) 0.5 Eosinophils # (Auto) 0.0 Basophils # (Auto) 0.0 CBC Comment AUTO DIFF Differential Total Cells Counted 100 Neutrophils % (Manual) 60 Band Neutrophils % 35 Lymphocytes % 2 Monocytes % 1 Neutrophils # (Manual) 15.8 Metamyelocytes 1 Myelocytes 1 Differential Comment FINAL DIFF MANUAL Platelet Estimate LOW Platelet Morphology Comment NORMAL Red Cell Morphology Comment NORMAL Prothrombin Time 13.0 Prothromb Time International Ratio 1.3 Activated Partial Thromboplast Time 30.8 Bedside Sodium 134 Blood Urea Nitrogen 42 Creatinine 5.16 Random Glucose 85 Total Protein 7.2 Albumin 3.3 Calcium Level 8.7 Magnesium Level 1.6 Alkaline Phosphatase 109 Aspartate Amino Transf (AST/SGOT) 130 Alanine Aminotransferase (ALT/SGPT) 154 Total Bilirubin 2.1 Sodium Level 135 Potassium Level 4.6 Chloride Level 101 Carbon Dioxide Level 19.5 Bedside Potassium 4.6 Bedside Chloride 102 Anion Gap 15 Bedside Blood Urea Nitrogen 42 Bedside Creatinine 5.3 Estimat Glomerular Filtration Rate 12 Bedside Glucose 90 Lactic Acid Level 2.7 2.4 Total Creatine Kinase 935 Creatine Kinase MB 8.0 Creatine Kinase MB % 0.9 Troponin I 0.15 0.10 Lipase 99 Blood Gas Puncture Site NURSE Blood Gas Patient Temperature 98.6 Venous Blood pH 7.30 Venous Blood Partial Pressure CO2 40 Venous Blood Partial Pressure O2 37 Venous Blood HCO3 19 Venous Blood Oxygen Saturation 64 Venous Blood Oxygen Content 13.2 Venous Blood Base Excess -6.2 Oxygen Delivery Device NASAL CANNULA Blood Gas Liter Flow 2 Urine Color YELLOW Urine Turbidity HAZY Urine pH 5.5 Urine Specific [place] 1.016 Urine Protein 30 Urine Glucose (UA) NEG Urine Ketones NEG Urine Occult Blood SMALL Urine Nitrite NEG Urine Bilirubin NEG Urine Urobilinogen LESS THAN 2.0 Urine Leukocyte Esterase NEG Urine RBC 3 Urine WBC 32 Urine Squamous Epithelial Cells 2 Urine Amorphous Sediment RARE Urine Bacteria OCC Urine Hyaline Casts 7 Urine Mucus FEW Microscopic Urinalysis Comment CULTURE INDICATED Test 06/05/17 16:45 06/05/17 18:00 06/05/17 20:07 06/06/17 00:50 Nasal Screen MRSA (PCR) MRSA DETECTED Urine Opiates Screen NEG Urine Barbiturates Screen NEG Urine Amphetamines Screen POS Urine Benzodiazepines Screen NEG Urine Cocaine Screen NEG Urine Cannabinoids Screen NEG Blood Urea Nitrogen 41 Creatinine 3.78 Random Glucose 75 Total Protein 5.8 Albumin 2.7 Calcium Level 7.2 Alkaline Phosphatase 82 Aspartate Amino Transf (AST/SGOT) 89 Alanine Aminotransferase (ALT/SGPT) 114 Total Bilirubin 2.4 Sodium Level 140 Potassium Level 4.3 Chloride Level 109 Carbon Dioxide Level 19.6 Anion Gap 11 Estimat Glomerular Filtration Rate 17 Lactic Acid Level 2.7 1.8 Protein Corrected Calcium 7.9 Troponin I 0.10 Test 06/06/17 05:30 White Blood Count 11.5 Red Blood Count 4.08 Hemoglobin 13.3 Hematocrit 37.2 Mean Corpuscular Volume 91.2 Mean Corpuscular Hemoglobin 32.7 Mean Corpuscular Hemoglobin Concent 35.9 Red Cell Distribution Width 12.9 Platelet Count 80 Mean Platelet Volume 8.5 Neutrophils (%) (Auto) 86.7 Lymphocytes (%) (Auto) 6.9 Monocytes (%) (Auto) 4.8 Eosinophils (%) (Auto) 1.5 Basophils (%) (Auto) 0.1 Neutrophils # (Auto) 10.0 Lymphocytes # (Auto) 0.8 Monocytes # (Auto) 0.6 Eosinophils # (Auto) 0.2 Basophils # (Auto) 0.0 CBC Comment AUTO DIFF Differential Total Cells Counted 100 Neutrophils % (Manual) 56 Band Neutrophils % 21 Lymphocytes % 5 Monocytes % 5 Neutrophils # (Manual) 10.4 Metamyelocytes 13 Differential Comment FINAL DIFF MANUAL Toxic Granulation 1+ Toxic Vacuolation PRESENT Platelet Estimate LOW Platelet Morphology Comment NORMAL Blood Urea Nitrogen 40 Creatinine 2.74 Random Glucose 68 Total Protein 5.8 Albumin 2.6 Calcium Level 7.2 Phosphorus Level 2.1 Magnesium Level 1.4 Alkaline Phosphatase 76 Aspartate Amino Transf (AST/SGOT) 73 Alanine Aminotransferase (ALT/SGPT) 97 Total Bilirubin 2.6 Sodium Level 142 Potassium Level 3.8 Chloride Level 112 Carbon Dioxide Level 19.0 Anion Gap 11 Estimat Glomerular Filtration Rate 24 Lactic Acid Level 2.3 Protein Corrected Calcium 7.9 Troponin I 0.10 Random Vancomycin Level 10.8 Date/Time Source Procedure Growth Status 06/05/17 12:35 Blood Peripheral Aerobic Blood Culture Pending Received 06/05/17 12:35 Blood Peripheral Anaerobic Blood Culture Pending Received 06/05/17 16:30 Urine Random Urine Urine Culture Pending Received (Khanh Montano) Result Diagram: 06/06/17 0530 06/06/17 0530 Imaging Last Impressions Chest X-Ray 06/05/17 1202 Signed Impressions: Service Date/Time: May 13:01 - CONCLUSION: No acute disease. Fritz Huerta MD Head CT 06/05/17 0000 Signed Impressions: Service Date/Time: May 12:32 - CONCLUSION: Stable negative noncontrast head CT. Marlon Jo MD Chest CT 06/05/17 0000 Signed Impressions: Service Date/Time: May 12:35 - CONCLUSION: 1. Apparent atelectasis in the tension portions of the lungs with no focal consolidation or mass. 2. Small amount of gas in the anterior right ventricle and aorta likely iatrogenic. 3. Mild hepatic steatosis. Marlon Jo MD Abdomen/Pelvis CT 06/05/17 0000 Signed Impressions: Service Date/Time: May 12:35 - CONCLUSION: 1. Mild diverticulosis with no definite inflammatory change. 2. Small amount of gas in the anterior right ventricle likely iatrogenic. 3. Mild hepatic steatosis. 4. Unremarkable gallbladder. 5. Apparent atelectasis in the dependent portions of the lung bases. Marlon Jo MD (Khanh Montano) Assessment and Plan Assessment and Plan 52-year-old male who presented for generalized malaise, weakness, body aches, fatigue, and chills. Patient was found to have findings consistent with septic shock including hypotension, acute renal and liver failure failure, lactic acidosis. The patient was also found to have minimal elevation of troponin and for this we are consulted. Troponins overnight are 0.15, 0.10, 0.10, 0.10. The patient denies any chest pain or shortness of breath. He states he is feeling much better today than he did upon admission. His only complaint at this time is wrist pain. Patient symptoms are suspected to be secondary to bacteremia from IVDA. The patient was also incidentally found to have a small amount of gas in the anterior right ventricle and aorta seen on chest CT and for this cardiothoracic surgery has been consulted. His EKG shows sinus tachycardia with no evidence of ischemic changes. Elevated troponin: Minimal elevation is likely demand mediated secondary to hypoperfusion in the setting of shock and multisystem organ dysfunction. Troponins are also flat, EKG is without ischemic changes, and the patient denies any chest pain. An echocardiogram has been ordered. Nothing further to add from a cardiology perspective at this time Discussed Condition With Patient, RN (Khanh Montano) Assessment and Plan demand mediated troponin leak may consider lexiscan prior to DC once he makes recovery CT surgery for air in ventricle, likely injected with IVDU will sign off call with further questions (Anthony Zaragoza MD) Khanh Montano Jun 06, 2017 08:39 Anthony Zaragoza MD Jun 06, 2017 13:39
--- NOTE | 2017-06-06 10:03 | RADRPT ---
EXAM DATE/TIME: 06/06/2017 09:17 [facility] COMPARISON: No previous studies available for comparison. INDICATIONS : Pain and swelling right hand MEDICAL HISTORY : septic shock SURGICAL HISTORY : None. ENCOUNTER: Subsequent ACUITY: 2 days PAIN SCORE: 10/10 LOCATION: Right hand FINDINGS: Three view examination of the right hand demonstrates no soft tissue swelling, dislocation, or fractu re. The carpal bones appear intact. The interphalangeal and metacarpophalangeal joints are intact. Bony mineralization is normal. CONCLUSION: Unremarkable examination of the right hand. Healed fifth metacarpal fracture Anthony Tinsley MD on June 06, 2017 at 10:00 Board Certified Radiologist. This report was verified electronically.
[2017-06-06] MEDS ORDERED: CALCIUM GLUCONATE INJ 1 GM in DEXTROSE 5% IN WATER 100ML INJ 100 ML IV ONE ×2 (11:15)
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
[2017-06-06] MEDS ORDERED: VANCOMYCIN 1,500 MG/NS 500 ML IV ONE ×2 (12:00)
[2017-06-06] MEDS: LACTATED RINGER'S 1000 ML INJ 1,000 ML IV SCH ×2 (12:49→21:15)
[2017-06-06] MEDS: MAGNESIUM SULFATE 1 GM PREMIX 100 ML IV SCH ×2 (12:50→13:56)
--- NOTE | 2017-06-06 13:43 | EKG ---
Date Performed: 06/05/2017 Time Performed: 11:55:40 PTAGE: 52 years EKG: SINUS TACHYCARDIA ABNORMAL RHYTHM ECG PREVIOUS TRACING : 01/18/2015 17.03 Since the previous tracing, no significant change noted DOCTOR: Galindo Bustamante Interpretating Date/Time 06/06/2017 13:41:50
[2017-06-06 14:57] LABS: LACTIC ACID SEPSIS PROTOCOL 2.7 mmol/L (0.4-2.0)
[2017-06-06] MEDS ORDERED: LACTATED RINGER'S 1000 ML INJ 1,000 ML IV SCH (15:15)
--- NOTE | 2017-06-06 15:44 | ECHRPT ---
Indication: Sepsis- Endocarditis CONCLUSIONS The left ventricular systolic function is hyperdynamic with an estimated ejection fraction in the ra nge of 65- 70%. Doppler parameters are consistent with impaired left ventricular relaxtion (grade 1 diastolic dysfun ction). There is trace tricuspid valve regurgitation. BP: / HR: Rhythm: MEASUREMENTS (Male / Female) Normal Values Technical Quality: 2D ECHO LV Diastolic Diameter PLAX 4.8 cm 4.2 - 5.9 / 3.9 - 5.3 cm LV Systolic Diameter PLAX 3.2 cm IVS Diastolic Thickness 1.1 cm 0.6 - 1.0 / 0.6 - 0.9 cm LVPW Diastolic Thickness 0.7 cm 0.6 - 1.0 / 0.6 - 0.9 cm LV Relative Wall Thickness 0.4 RV Internal Dim ED PLAX 2.0 cm M-MODE Aortic Root Diameter MM 3.1 cm AV Cusp Separation MM 1.8 cm DOPPLER Mitral E Point Velocity 62.7 cm/s Mitral A Point Velocity 87.9 cm/s Mitral E to A Ratio 0.7 TR Peak Velocity 250.0 cm/s TR Peak Gradient 25.0 mmHg FINDINGS LEFT VENTRICLE Normal left ventricular size. Wall thickness is normal. The left ventricular systolic function is hyperdynamic with an estimated ejection fraction in the ra nge of 65- 70%. Doppler parameters are consistent with impaired left ventricular relaxtion (grade 1 diastolic dysfun ction). RIGHT VENTRICLE Normal right ventricular size and systolic function. LEFT ATRIUM The left atrial size is normal. RIGHT ATRIUM The right atrial size is normal. ATRIAL SEPTUM Normal atrial septal thickness without atrial level shunting by limited color doppler interrogation. AORTA The aortic root and proximal ascending aorta are normal in size on limited imaging. MITRAL VALVE Structurally normal mitral valve. No mitral valve stenosis or regurgitation. AORTIC VALVE Trileaflet aortic valve. No aortic valve stenosis or regurgitation. TRICUSPID VALVE Structurally normal tricuspid valve. No tricuspid valve stenosis. There is trace tricuspid valve regurgitation. PULMONARY VALVE The pulmonary valve is not well visualized. VESSELS The inferior vena cava is normal in size. PERICARDIUM No pericardial effusion. Newton Romero DO (Electronically Signed) Final Date:06 June 2017 15:43
--- NOTE | 2017-06-06 16:48 | RADRPT ---
EXAM DATE/TIME: 06/06/2017 15:54 [facility] COMPARISON: No previous studies available for comparison. INDICATIONS : Increased lab values. Acute kidney injury. MEDICAL HISTORY : Hypertension. Gastroesophageal reflux disease. Methicillin-resistant staph aureus. SURGICAL HISTORY : Inguinal hernia repair. Tonsillectomy. ENCOUNTER: Initial ACUITY: 3 days PAIN SCORE: 10/10 LOCATION: Abdomen. MEASUREMENTS: LIVER: 15.1 cm length COMMON DUCT: 5 mm RIGHT KIDNEY: 11.4 x 6.0 x 5.5 cm SPLEEN: 13.1 cm length FINDINGS: LIVER: Normal echotexture without focal lesion or ductal dilatation. COMMON DUCT: No intraluminal mass or stone visualized. GALLBLADDER: Contains no stones, demonstrates no wall thickening or pericholecystic fluid. PANCREAS: Markedly obscured due to bowel gas. RIGHT KIDNEY: No hydronephrosis, stone or mass. SPLEEN: No focal lesion. CONCLUSION: Normal examination. The pancreas is obscured with bowel gas. Anthony Tinsley MD on June 06, 2017 at 16:43 Board Certified Radiologist. This report was verified electronically.
[2017-06-07] VITALS (10 sets, daily range): BP systolic 116–140; BP diastolic 74–84; PULSE 84–111; RESP 14–34; TEMP 98.4–98.9; O2SAT 91–96
[2017-06-07] MEDS: LACTATED RINGER'S 1000 ML INJ 1,000 ML IV SCH (02:00)
[2017-06-07] MEDS: CHLORHEXIDINE GLUCONATE 2 % 1 PACK (2 CLOTHS) TOP SCH (02:58)
[2017-06-07] MEDS: PIPERACIL-TAZO 2.25 GM PREMIX 50 ML IV SCH ×4 (02:58→21:31)
[2017-06-07] MEDS: oxyCODONE/ACETAMINOPHEN 5 MG/325 MG TAB PO PRN ×3 (02:58→22:37)
[2017-06-07 06:03] LABS: BASOPHIL % 0.3 % (0.0-2.0); EOSINOPHIL # 0.2 TH/MM3 (0-0.4); EOSINOPHIL % 1.3 % (0.0-4.0); HEMATOCRIT 34.2 % (39.0-51.0); HEMOGLOBIN 12.1 GM/DL (13.0-17.0); LYMPH % 8.7 % (9.0-44.0); LYMPHOCYTE # 1.1 TH/MM3 (1.0-4.8); MEAN CELL VOLUME 92.7 FL (80.0-100.0); MEAN CORPUSCULAR HEMOGLOBIN 32.9 PG (27.0-34.0); MEAN CORPUSCULAR HGB CONC 35.5 % (32.0-36.0); MEAN PLATELET VOLUME 8.4 FL (7.0-11.0); MONO % 2.8 % (0.0-8.0); MONOCYTE # 0.4 TH/MM3 (0-0.9); NEUT % 86.9 % (16.0-70.0); PLATELET COUNT 79 TH/MM3 (150-450); RED BLOOD COUNT 3.69 MIL/MM3 (4.50-5.90); RED CELL DISTRIBUTION WIDTH 13.1 % (11.6-17.2); WHITE BLOOD COUNT 12.7 TH/MM3 (4.0-11.0)
[2017-06-07] MEDS: HEPARIN SODIUM - SQ 10,000 UNITS/ML VIAL SQ SCH ×2 (06:06→18:00)
[2017-06-07 06:15] LABS: ALBUMIN 2.4 GM/DL (3.4-5.0); AST (GOT) 45 U/L (15-37); BLOOD UREA NITROGEN 23 MG/DL (7-18); CALCIUM 7.9 MG/DL (8.5-10.1); CHLORIDE 111 MEQ/L (98-107); GLOMERULAR FILTRATION RATE 49 ML/MIN (>89); GLUCOSE,RANDOM 85 MG/DL (74-106); MAGNESIUM 1.8 MG/DL (1.5-2.5); SODIUM (NA) 144 MEQ/L (136-145)
[2017-06-07 06:22] LABS: ALKALINE PHOSPHATASE 121 U/L (45-117); ALT (GPT) 67 U/L (12-78); FREE T4 1.19 NG/DL (0.76-1.46); PHOSPHORUS 1.8 MG/DL (2.5-4.9); RANDOM VANCOMYCIN 9.1 COMMENT; TOTAL BILIRUBIN ADULT 1.3 MG/DL (0.2-1.0); TOTAL PROTEIN 5.8 GM/DL (6.4-8.2)
[2017-06-07] MEDS: PANTOPRAZOLE SODIUM 40 MG VIAL IV PUSH SCH (08:17)
[2017-06-07 09:11] LABS: BANDS 22 % (0-6); LYMPHOCYTES 5 % (9-44); MONOCYTES 3 % (0-8); NEUTROPHIL # MANUAL DIFF 11.7 TH/MM3 (1.8-7.7); POLYS (SEG NEUTROPHILS) 70 % (16-70)
[2017-06-07 09:12] LABS: ACANTHOCYTES 1+ (NORMAL)
[2017-06-07 10:52] LABS: HEMOGLOBIN A1C 5.1 % (4.3-6.0)
[2017-06-07] MEDS ORDERED: VANCOMYCIN 1,500 MG/NS 500 ML IV ONE ×2 (11:00)
--- NOTE | 2017-06-07 11:18 | HHI.PR ---
Subjective Remarks The patient was resting in bed comfortably. He had no acute complaints. He said that he has been breathing well. He has been sleeping at night. He said that he had pains in his hands that come and go chronically. Objective Vitals Vital Signs Date Time Temp Pulse Resp B/P (MAP) Pulse Ox O2 Delivery O2 Flow Rate FiO2 06/07/17 06:00 98 06/07/17 04:00 98.6 103 29 116/84 (95) 93 06/07/17 04:00 103 06/07/17 02:00 101 06/07/17 00:00 111 06/07/17 00:00 98.7 111 34 118/81 (93) 91 06/06/17 22:00 114 06/06/17 20:00 98.5 114 32 134/83 (100) 94 06/06/17 20:00 114 06/06/17 18:00 111 06/06/17 16:00 106 06/06/17 16:00 98.4 106 24 117/70 (86) 93 06/06/17 14:00 102 06/06/17 12:14 16 06/06/17 12:00 102 06/06/17 12:00 98.8 102 37 89/68 (75) 95 I/O 06/06/17 06/06/17 06/06/17 06/07/17 06/07/17 06/07/17 07:00 15:00 23:00 07:00 15:00 23:00 Intake Total 1050 ml 825 ml 1100 ml 1000 ml Output Total 1230 ml 975 ml 2000 ml Balance -180 ml 825 ml 125 ml -1000 ml IV Total 1050 ml 825 ml 1100 ml 1000 ml Output Urine Total 1230 ml 975 ml 2000 ml # Bowel Movements 0 1 0 Result Diagram: 06/07/17 0541 06/07/17 0541 Imaging Last Impressions Liver Ultrasound 06/06/17 0000 Signed Impressions: Service Date/Time: Tuesday, June 06, 2017 15:54 - CONCLUSION: Normal examination. The pancreas is obscured with bowel gas. Anthony Tinsley MD Hand X-Ray 06/06/17 0000 Signed Impressions: Service Date/Time: Tuesday, June 06, 2017 09:17 - CONCLUSION: Unremarkable examination of the right hand. Healed fifth metacarpal fracture Anthony Tinsley MD Chest X-Ray 06/05/17 1202 Signed Impressions: Service Date/Time: May 13:01 - CONCLUSION: No acute disease. Fritz Huerta MD Head CT 06/05/17 0000 Signed Impressions: Service Date/Time: May 12:32 - CONCLUSION: Stable negative noncontrast head CT. Marlon Jo MD Chest CT 06/05/17 0000 Signed Impressions: Service Date/Time: May 12:35 - CONCLUSION: 1. Apparent atelectasis in the tension portions of the lungs with no focal consolidation or mass. 2. Small amount of gas in the anterior right ventricle and aorta likely iatrogenic. 3. Mild hepatic steatosis. Marlon Jo MD Abdomen/Pelvis CT 06/05/17 0000 Signed Impressions: Service Date/Time: May 12:35 - CONCLUSION: 1. Mild diverticulosis with no definite inflammatory change. 2. Small amount of gas in the anterior right ventricle likely iatrogenic. 3. Mild hepatic steatosis. 4. Unremarkable gallbladder. 5. Apparent atelectasis in the dependent portions of the lung bases. Marlon Jo MD Objective Remarks General: Resting comfortably HEENT: Pupils are equal, reactive, sclerae are anicteric, neck is supple. Heart: regular heart sounds, no murmurs appreciated. Lungs: Rales at the left base. GI: soft, not distended, non-tender, BS present, no hepatomegaly, no splenomegaly. Skin: no rashes, no cyanosis. Extremities: The pt has swelling in his hands, some tenderness. TR LE edema. Neuro: awake, alert, oriented, motor 5 out of 5 overall extremities. Psych: Calm. Medications and IVs Current Medications Medications (Trade) Dose Ordered Sig/Haley Route Start Time Stop Time Status Last Admin (NS Flush) 2 ml UNSCH PRN IVF 06/05/17 12:15 Norepinephrine Bitartrate 4 mg/ Sodium Chloride 250 ml @ 7.5 mls/hr TITRATE PRN IV 06/05/17 13:00 06/05/17 22:09 (Brethine Inj) 1 mg UNSCH PRN SQ 06/05/17 13:00 (Protonix Inj) 40 mg DAILY IV PUSH 06/06/17 09:00 06/07/17 08:17 (Heparin Inj) 5,000 units Q12H SQ 06/05/17 18:00 06/07/17 06:06 Miscellaneous Information 1 Q361D XX 06/05/17 13:45 (Chlorhexidine 2% Cloth) 3 pack Taper DAILY@04 TOP 06/06/17 04:00 06/02/18 03:59 06/07/17 02:58 (Chlorhexidine 2% Cloth) 3 pack UNSCH PRN TOP 06/05/17 13:45 Pharmacy Profile Note 0 ml @ 0 mls/hr UNSCH OTHER 06/05/17 13:45 Piperacillin Sod/ Tazobactam Sod 50 ml @ 100 mls/hr Q6H IV 06/05/17 15:00 06/07/17 08:17 (Percocet 5-325 Mg) 1 tab Q4H PRN PO 06/06/17 08:45 06/07/17 08:35 Lactated Ringer's 1,000 ml @ 100 mls/hr Q10H IV 06/06/17 11:15 06/07/17 02:00 Vancomycin HCl 1500 mg/Sodium Chloride 515 ml @ 257.5 mls/ hr ONCE ONCE IV 06/07/17 11:00 06/07/17 12:59 Potassium Phosphate 30 mmol/ Sodium Chloride 260 ml @ 43.333 mls/ hr ONCE ONCE IV 06/07/17 12:00 06/07/17 17:59 A/P Assessment and Plan Circulatory shock Likely septic. weaned off vasopressor. Echo with EF 65-70%. - Continue gentle IV hydration. - Continue renal dose vancomycin and Zosyn pending cultures. - repeat CXR. Small amount of air in the right ventricle and aorta Seen by cardiothoracic surgery. - follow up with CTS. Renal insufficiency Improving. - IVFs. Elevated LFTs Liver ultrasound unremarkable. HCV positive. - trend LFTs. - outpt followup. Substance abuse - The pt has been counseled. Hand swelling Possible gout. - check uric acid level. - trial of prednisone. PPx: DVT prophylaxis with heparin Marlon Fatima DO Jun 07, 2017 11:18
--- NOTE | 2017-06-07 11:44 | RADRPT ---
EXAM DATE/TIME: 06/07/2017 11:22 [facility] COMPARISON: CHEST SINGLE AP, June 05, 2017, 13:01. INDICATIONS : Evaluate for pneumonia, pneumothorax and communicable diseases. Shortness of breath. MEDICAL HISTORY : None. SURGICAL HISTORY : None. ENCOUNTER: Subsequent ACUITY: 2 days PAIN SCORE: 0/10 LOCATION: Bilateral chest FINDINGS: The lung volumes are diminished, no effusions are seen. No definite airspace disease. CONCLUSION: Shallow lung volumes. Ej Deras MD on June 07, 2017 at 11:41 Board Certified Radiologist. This report was verified electronically.
[2017-06-07] MEDS: predniSONE 20 MG TAB PO SCH (11:47)
[2017-06-07] MEDS: SODIUM CHLOR 0.45% 1000 ML INJ 1,000 ML IV SCH ×2 (11:47→21:31)
[2017-06-07] MEDS ORDERED: POTASSIUM PHOSPHATE INJ 30 MMOL in SODIUM CHLOR 0.9% 250 ML INJ 250 ML IV ONE (12:00)
[2017-06-08] VITALS (9 sets, daily range): BP systolic 126–146; BP diastolic 69–86; PULSE 79–98; RESP 17–19; TEMP 97.7–98.9; O2SAT 94–97
[2017-06-08] MEDS: PIPERACIL-TAZO 2.25 GM PREMIX 50 ML IV SCH ×4 (03:09→21:22)
[2017-06-08] MEDS: CHLORHEXIDINE GLUCONATE 2 % 1 PACK (2 CLOTHS) TOP SCH (04:00)
[2017-06-08 05:59] LABS: AUTOMATED NEUTROPHIL # 11.5 TH/MM3 (1.8-7.7); BASOPHIL % 0.1 % (0.0-2.0); HEMATOCRIT 34.1 % (39.0-51.0); HEMOGLOBIN 11.9 GM/DL (13.0-17.0); LYMPH % 7.7 % (9.0-44.0); MEAN CELL VOLUME 92.4 FL (80.0-100.0); MEAN CORPUSCULAR HEMOGLOBIN 32.2 PG (27.0-34.0); MEAN CORPUSCULAR HGB CONC 34.9 % (32.0-36.0); MEAN PLATELET VOLUME 8.4 FL (7.0-11.0); MONO % 3.7 % (0.0-8.0); MONOCYTE # 0.5 TH/MM3 (0-0.9); NEUT % 88.5 % (16.0-70.0); PLATELET COUNT 94 TH/MM3 (150-450); RED BLOOD COUNT 3.69 MIL/MM3 (4.50-5.90); RED CELL DISTRIBUTION WIDTH 13.1 % (11.6-17.2)
[2017-06-08] MEDS: HEPARIN SODIUM - SQ 10,000 UNITS/ML VIAL SQ SCH ×2 (06:15→16:49)
[2017-06-08 06:27] LABS: ALBUMIN 2.5 GM/DL (3.4-5.0); AST (GOT) 29 U/L (15-37); BLOOD UREA NITROGEN 14 MG/DL (7-18); CALCIUM 8.3 MG/DL (8.5-10.1); CHLORIDE 110 MEQ/L (98-107); CREATININE 1.17 MG/DL (0.60-1.30); GLOMERULAR FILTRATION RATE 65 ML/MIN (>89); GLUCOSE,RANDOM 102 MG/DL (74-106); MAGNESIUM 1.6 MG/DL (1.5-2.5); SODIUM (NA) 143 MEQ/L (136-145)
[2017-06-08 06:28] LABS: ALT (GPT) 53 U/L (12-78); PHOSPHORUS 2.6 MG/DL (2.5-4.9)
[2017-06-08 06:30] LABS: ALKALINE PHOSPHATASE 188 U/L (45-117); TOTAL BILIRUBIN ADULT 0.8 MG/DL (0.2-1.0); TOTAL PROTEIN 6.3 GM/DL (6.4-8.2)
[2017-06-08] MEDS: PANTOPRAZOLE SODIUM 40 MG VIAL IV PUSH SCH (10:19)
[2017-06-08] MEDS: predniSONE 20 MG TAB PO SCH (10:19)
--- NOTE | 2017-06-08 12:25 | HHI.PR ---
Subjective Remarks feels feverish and subjective chills- check T T 97.6 denies any cough or urinary symptoms loose stools this am no headaches or abdominal pain admits to injecting powdered amphetamine on his right AC area- site no sign sof induration or erythema, + slight bruising but hands with multiple superficial cuts- + bilateral swelling Objective Vitals Vital Signs Date Time Temp Pulse Resp B/P (MAP) Pulse Ox O2 Delivery O2 Flow Rate FiO2 06/08/17 08:10 98.3 86 18 129/69 (89) 96 06/08/17 04:00 98.4 89 19 133/73 (93) 95 06/08/17 04:00 Room Air 06/08/17 03:42 91 06/08/17 00:26 93 06/08/17 00:00 98.0 95 19 126/86 (99) 97 06/08/17 00:00 Room Air 06/07/17 20:00 98.9 99 17 127/83 (98) 95 06/07/17 20:00 Room Air 06/07/17 16:00 98.6 85 29 127/77 (94) 94 06/07/17 16:00 85 06/07/17 14:00 89 I/O 06/07/17 06/07/17 06/07/17 06/08/17 06/08/17 06/08/17 07:00 15:00 23:00 07:00 15:00 23:00 Intake Total 1000 ml 1477 ml 1250 ml 290 ml Output Total 2000 ml 3000 ml 1400 ml Balance -1000 ml 1477 ml -1750 ml -1110 ml Intake Oral 200 ml 240 ml IV Total 1000 ml 1477 ml 1050 ml 50 ml Output Urine Total 2000 ml 3000 ml 1400 ml # Bowel Movements 0 0 Result Diagram: 06/08/17 0515 06/08/17 0515 Imaging Last Impressions Chest X-Ray 06/07/17 0000 Signed Impressions: Service Date/Time: Wednesday, June 07, 2017 11:22 - CONCLUSION: Shallow lung volumes. Ej Deras MD Liver Ultrasound 06/06/17 0000 Signed Impressions: Service Date/Time: Tuesday, June 06, 2017 15:54 - CONCLUSION: Normal examination. The pancreas is obscured with bowel gas. Anthony Tinsley MD Hand X-Ray 06/06/17 0000 Signed Impressions: Service Date/Time: Tuesday, June 06, 2017 09:17 - CONCLUSION: Unremarkable examination of the right hand. Healed fifth metacarpal fracture Anthony Tinsley MD Head CT 06/05/17 0000 Signed Impressions: Service Date/Time: May 12:32 - CONCLUSION: Stable negative noncontrast head CT. Marlon Jo MD Chest CT 06/05/17 0000 Signed Impressions: Service Date/Time: May 12:35 - CONCLUSION: 1. Apparent atelectasis in the tension portions of the lungs with no focal consolidation or mass. 2. Small amount of gas in the anterior right ventricle and aorta likely iatrogenic. 3. Mild hepatic steatosis. Marlon Jo MD Abdomen/Pelvis CT 06/05/17 0000 Signed Impressions: Service Date/Time: May 12:35 - CONCLUSION: 1. Mild diverticulosis with no definite inflammatory change. 2. Small amount of gas in the anterior right ventricle likely iatrogenic. 3. Mild hepatic steatosis. 4. Unremarkable gallbladder. 5. Apparent atelectasis in the dependent portions of the lung bases. Marlon Jo MD Objective Remarks awake and alert, oriented x 3 anicteric lips, oral mucosa/gingiva with painful blisters neck supple, no rigidity lungs- no rales regular rhythm abdomen soft, nontender right AC area- small ecchymoses, no induration bilateral hand- + swelling, multiple superficial bush, looks like cuts, mild erythema , good peripheral pulses LE no edema A/P Assessment and Plan 52 years old S/P Circulatory shock Likely septic. weaned off vasopressor. Echo with EF 65-70% . known IVDU- recently injected 3 days ago- source ? bilateral cellulitis - hand with lots of bush - Continue gentle IV hydration. - Continue current vancomycin and Zosyn - cultures negative - get ID consult for recommendations Small amount of air in the right ventricle and aorta Seen by cardiothoracic surgery. - follow up with CTS. SANTOS- resolved - ff BMP - IVFs. Painful oral blisters - treat with magic mouthwash qid and monitor Elevated LFTs- trending down Liver ultrasound unremarkable. HCV positive. - trend LFTs. - outpt followup. Substance abuse - The pt has been counseled. Hand swelling - doubt gout. DC Prednisone - PPx: DVT prophylaxis with heparin Up and ambulate- encourage Derrell Cuevas MD Jun 08, 2017 12:25
[2017-06-08] MEDS: VANCOMYCIN INJ 1,500 MG in SODIUM CHLORID 0.9% 500 ML INJ 500 ML IV SCH (12:34)
[2017-06-08] MEDS: NYSTAT/DIPHENHY/LIDO MOUTHWASH (Adult) 120ML SWISH-SWAL SCH ×3 (16:05→21:22)
[2017-06-08] MEDS: oxyCODONE/ACETAMINOPHEN 5 MG/325 MG TAB PO PRN (21:22)
[2017-06-09] VITALS: BP 162/79; PULSE 85; RESP 19; TEMP 98; O2SAT 96
[2017-06-09 00:02] VITALS: PULSE 74
[2017-06-09] MEDS: CHLORHEXIDINE GLUCONATE 2 % 1 PACK (2 CLOTHS) TOP SCH (03:50)
[2017-06-09] MEDS: PIPERACIL-TAZO 2.25 GM PREMIX 50 ML IV SCH ×3 (03:50→14:11)
[2017-06-09 04:00] VITALS: BP 147/92; PULSE 71; PULSE 82; RESP 16; TEMP 97.4; O2SAT 94
[2017-06-09] MEDS: VANCOMYCIN INJ 1,500 MG in SODIUM CHLORID 0.9% 500 ML INJ 500 ML IV SCH (06:50)
[2017-06-09] MEDS: HEPARIN SODIUM - SQ 10,000 UNITS/ML VIAL SQ SCH ×2 (06:51→18:42)
[2017-06-09 07:16] LABS: AUTOMATED NEUTROPHIL # 7.1 TH/MM3 (1.8-7.7); BASOPHIL % 0.2 % (0.0-2.0); EOSINOPHIL % 0.4 % (0.0-4.0); HEMATOCRIT 37.8 % (39.0-51.0); HEMOGLOBIN 13.2 GM/DL (13.0-17.0); LYMPH % 17.1 % (9.0-44.0); LYMPHOCYTE # 1.6 TH/MM3 (1.0-4.8); MEAN CELL VOLUME 93.6 FL (80.0-100.0); MEAN CORPUSCULAR HEMOGLOBIN 32.6 PG (27.0-34.0); MEAN CORPUSCULAR HGB CONC 34.9 % (32.0-36.0); MEAN PLATELET VOLUME 8.4 FL (7.0-11.0); MONOCYTE # 0.6 TH/MM3 (0-0.9); NEUT % 75.3 % (16.0-70.0); PLATELET COUNT 127 TH/MM3 (150-450); RED BLOOD COUNT 4.04 MIL/MM3 (4.50-5.90); RED CELL DISTRIBUTION WIDTH 13.1 % (11.6-17.2); WHITE BLOOD COUNT 9.3 TH/MM3 (4.0-11.0)
[2017-06-09 07:45] LABS: ALBUMIN 2.9 GM/DL (3.4-5.0); ALT (GPT) 56 U/L (12-78); AST (GOT) 32 U/L (15-37); BICARBONATE 24.7 MEQ/L (21.0-32.0); BLOOD UREA NITROGEN 20 MG/DL (7-18); CALCIUM 8.3 MG/DL (8.5-10.1); CHLORIDE 107 MEQ/L (98-107); GLOMERULAR FILTRATION RATE 70 ML/MIN (>89); GLUCOSE,RANDOM 106 MG/DL (74-106); MAGNESIUM 1.6 MG/DL (1.5-2.5); PHOSPHORUS 2.8 MG/DL (2.5-4.9); SODIUM (NA) 140 MEQ/L (136-145)
[2017-06-09 07:47] LABS: ALKALINE PHOSPHATASE 181 U/L (45-117); TOTAL BILIRUBIN ADULT 0.5 MG/DL (0.2-1.0)
[2017-06-09 08:00] VITALS: BP 156/104; PULSE 72; PULSE 73; RESP 19; TEMP 97.2; O2SAT 98
[2017-06-09 08:01] LABS: BANDS 4 % (0-6); LYMPHOCYTES 26 % (9-44); MONOCYTES 2 % (0-8); MYELOCYTES 1 % (0-0); NEUTROPHIL # MANUAL DIFF 6.7 TH/MM3 (1.8-7.7); POLYS (SEG NEUTROPHILS) 67 % (16-70)
--- NOTE | 2017-06-09 08:25 | HHI.PR ---
Subjective Remarks no complains no fever or chills Objective Vitals Vital Signs Date Time Temp Pulse Resp B/P (MAP) Pulse Ox O2 Delivery O2 Flow Rate FiO2 06/09/17 04:00 71 06/09/17 04:00 Room Air 06/09/17 04:00 97.4 82 16 147/92 (110) 94 06/09/17 00:02 74 06/09/17 00:00 Room Air 06/09/17 00:00 98.0 85 19 162/79 (106) 96 06/08/17 20:00 98.5 85 17 146/85 (105) 94 06/08/17 20:00 84 06/08/17 20:00 Room Air 06/08/17 16:10 98.9 86 18 138/77 (97) 96 06/08/17 12:10 97.7 79 18 127/86 (100) 97 I/O 06/08/17 06/08/17 06/08/17 06/09/17 06/09/17 06/09/17 07:00 15:00 23:00 07:00 15:00 23:00 Intake Total 290 ml 515 ml 620 ml 420 ml Output Total 1400 ml 4 ml 1050 ml Balance -1110 ml 515 ml 616 ml -630 ml Intake Oral 240 ml 520 ml 420 ml IV Total 50 ml 515 ml 100 ml Output Urine Total 1400 ml 4 ml 1050 ml # Bowel Movements 2 1 Result Diagram: 06/09/17 0600 06/09/17 0600 Imaging Last Impressions Chest X-Ray 06/07/17 0000 Signed Impressions: Service Date/Time: Wednesday, June 07, 2017 11:22 - CONCLUSION: Shallow lung volumes. Ej Deras MD Liver Ultrasound 06/06/17 0000 Signed Impressions: Service Date/Time: Tuesday, June 06, 2017 15:54 - CONCLUSION: Normal examination. The pancreas is obscured with bowel gas. Anthony Tinsley MD Hand X-Ray 06/06/17 0000 Signed Impressions: Service Date/Time: Tuesday, June 06, 2017 09:17 - CONCLUSION: Unremarkable examination of the right hand. Healed fifth metacarpal fracture Anthony Tinsley MD Head CT 06/05/17 0000 Signed Impressions: Service Date/Time: May 12:32 - CONCLUSION: Stable negative noncontrast head CT. Marlon Jo MD Chest CT 06/05/17 0000 Signed Impressions: Service Date/Time: May 12:35 - CONCLUSION: 1. Apparent atelectasis in the tension portions of the lungs with no focal consolidation or mass. 2. Small amount of gas in the anterior right ventricle and aorta likely iatrogenic. 3. Mild hepatic steatosis. Marlon Jo MD Abdomen/Pelvis CT 06/05/17 0000 Signed Impressions: Service Date/Time: May 12:35 - CONCLUSION: 1. Mild diverticulosis with no definite inflammatory change. 2. Small amount of gas in the anterior right ventricle likely iatrogenic. 3. Mild hepatic steatosis. 4. Unremarkable gallbladder. 5. Apparent atelectasis in the dependent portions of the lung bases. Marlon Jo MD Objective Remarks awake and alert, oriented x 3 anicteric lips, oral mucosa/gingiva with- blisters- drying up neck supple, no rigidity lungs- no rales regular rhythm abdomen soft, nontender right AC area- small ecchymoses, no induration bilateral hand- decrease swelling, good pulses, multiple superficial bush, looks like cuts, mild erythema , good peripheral pulses LE no edema gait steady A/P Assessment and Plan 52 years old admits to injecting powdered amphetamine on his right AC area- S/P Circulatory shock Likely septic. off vasopressor. Echo with EF 65-70%. known IVDU- recently injected 3 days ago- source ? bilateral cellulitis - hand with lots of bush - up and ambulating - Continue current vancomycin and Zosyn - cultures negative so far for 4 days - WBC down - get ID consult for recommendations Small amount of air in the right ventricle and aorta Seen by cardiothoracic surgery. - follow up with CTS. SANTOS- resolved - ff BMP - good po/voiding Painful oral blisters- - treat with magic mouthwash qid and monitor Elevated LFTs- trending down Liver ultrasound unremarkable. HCV positive. - trend LFTs. - outpt followup. Substance abuse - The pt has been counseled. Hand swelling- improved - doubt gout. DC Prednisone - PPx: DVT prophylaxis with heparin Up and ambulate- encourage Patient wasnt to go home possible DC today with antibiotic recommendation - will d/w ID Faith,Alfea M. MD Jun 09, 2017 08:25
[2017-06-09] MEDS ORDERED: PANTOPRAZOLE SOD 20 MG DELAYED RELEASE TAB PO SCH (09:00)
[2017-06-09] MEDS: NYSTAT/DIPHENHY/LIDO MOUTHWASH (Adult) 120ML SWISH-SWAL SCH ×3 (09:15→18:41)
[2017-06-09 12:00] VITALS: BP 132/84; PULSE 78; RESP 18; TEMP 98.3; O2SAT 95
[2017-06-09 16:00] VITALS: BP 130/91; PULSE 57; PULSE 82; RESP 18; TEMP 97.7; O2SAT 97
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
[2017-06-09] MEDS ORDERED: MAGICADU2 SWISH-SWAL (18:20)
--- NOTE | 2017-06-09 18:23 | HHI.DS ---
Discharge Summary Admission Date Jun 05, 2017 at 13:13 Discharge Date: Jun 09, 2017 Admitting Diagnosis Septic shock. Acute kidney injury. Elevated troponin. (1) septric shock Diagnosis: Principal (2) SANTOS (acute kidney injury) ICD Code: N17.9 - Acute kidney failure, unspecified Diagnosis: Principal Status: Acute (3) IVDU (intravenous drug user) ICD Code: F19.90 - Other psychoactive substance use, unspecified, uncomplicated Diagnosis: Principal (4) Elevated LFTs ICD Code: R79.89 - Other specified abnormal findings of blood chemistry Diagnosis: Secondary Procedures none Brief History - From Admission 52-year-old gentleman with history of hypertension, now presents to ED complaining of generalized weakness, body aches and fatigue. Patient states that he is not feeling well over the last 2 days, worsening last night. He reports some substernal chest pain described as heartburn associated with fever , chills, some dry cough. Because of the worsening of symptoms he was brought in to the emergency room by his . On ED arrival, patient was profoundly hypotensive with systolic blood pressure in the 60s. He was given 2 L fluid bolus, an emergent femoral central line was placed and patient was started on norepinephrine. On routine labs he was found to have SANTOS and lactic acidosis. He was given vancomycin and Zosyn and [facility] was consulted for ICU admission. Of note, patient used methamphetamine last night. Patient was seen in ED, resting in bed, ill-appearing, complaining of chills. He is currently on norepinephrine infusion at 10 mics per minute. CBC/BMP: 06/09/17 0600 06/09/17 0600 Significant Findings Laboratory Tests Test 06/06/17 19:34 06/07/17 05:41 06/08/17 05:15 06/09/17 06:00 White Blood Count 12.7 TH/MM3 (4.0-11.0) 13.0 TH/MM3 (4.0-11.0) Red Blood Count 3.69 MIL/MM3 (4.50-5.90) 3.69 MIL/MM3 (4.50-5.90) 4.04 MIL/MM3 (4.50-5.90) Hemoglobin 12.1 GM/DL (13.0-17.0) 11.9 GM/DL (13.0-17.0) Hematocrit 34.2 % (39.0-51.0) 34.1 % (39.0-51.0) 37.8 % (39.0-51.0) Platelet Count 79 TH/MM3 (150-450) 94 TH/MM3 (150-450) 127 TH/MM3 (150-450) Neutrophils (%) (Auto) 86.9 % (16.0-70.0) 88.5 % (16.0-70.0) 75.3 % (16.0-70.0) Lymphocytes (%) (Auto) 8.7 % (9.0-44.0) 7.7 % (9.0-44.0) Neutrophils # (Auto) 11.0 TH/MM3 (1.8-7.7) 11.5 TH/MM3 (1.8-7.7) Band Neutrophils % 22 % (0-6) Lymphocytes % 5 % (9-44) Neutrophils # (Manual) 11.7 TH/MM3 (1.8-7.7) Platelet Estimate LOW (NORMAL) LOW (NORMAL) Acanthocytes 1+ (NORMAL) Blood Urea Nitrogen 23 MG/DL (7-18) 20 MG/DL (7-18) Creatinine 1.50 MG/DL (0.60-1.30) Total Protein 5.8 GM/DL (6.4-8.2) 6.3 GM/DL (6.4-8.2) Albumin 2.4 GM/DL (3.4-5.0) 2.5 GM/DL (3.4-5.0) 2.9 GM/DL (3.4-5.0) Calcium Level 7.9 MG/DL (8.5-10.1) 8.3 MG/DL (8.5-10.1) 8.3 MG/DL (8.5-10.1) Phosphorus Level 1.8 MG/DL (2.5-4.9) Alkaline Phosphatase 121 U/L (45-117) 188 U/L (45-117) 181 U/L (45-117) Aspartate Amino Transf (AST/SGOT) 45 U/L (15-37) Total Bilirubin 1.3 MG/DL (0.2-1.0) Chloride Level 111 MEQ/L (98-107) 110 MEQ/L (98-107) Estimat Glomerular Filtration Rate 49 ML/MIN (>89) 65 ML/MIN (>89) 70 ML/MIN (>89) Thyroid Stimulating Hormone 3rd Gen 6.000 uIU/ML (0.358-3.740) Hepatitis C IgG Antibody REACTIVE (NONREACTIVE) Myelocytes 1 % (0-0) Platelet Morphology Comment ENLARGED (NORMAL) Imaging Last Impressions Chest X-Ray 06/07/17 0000 Signed Impressions: Service Date/Time: Wednesday, June 07, 2017 11:22 - CONCLUSION: Shallow lung volumes. Ej Deras MD Liver Ultrasound 06/06/17 0000 Signed Impressions: Service Date/Time: Tuesday, June 06, 2017 15:54 - CONCLUSION: Normal examination. The pancreas is obscured with bowel gas. Anthony Tinsley MD Hand X-Ray 06/06/17 Signed Impressions: Service Date/Time: Tuesday, June 06, 2017 09:17 - CONCLUSION: Unremarkable examination of the right hand. Healed fifth metacarpal fracture Anthony Tinsley MD Head CT 06/05/17 0000 Signed Impressions: Service Date/Time: May 12:32 - CONCLUSION: Stable negative noncontrast head CT. Marlon Jo MD Chest CT 06/05/17 0000 Signed Impressions: Service Date/Time: May 12:35 - CONCLUSION: 1. Apparent atelectasis in the tension portions of the lungs with no focal consolidation or mass. 2. Small amount of gas in the anterior right ventricle and aorta likely iatrogenic. 3. Mild hepatic steatosis. Marlon Jo MD Abdomen/Pelvis CT 06/05/17 0000 Signed Impressions: Service Date/Time: May 12:35 - CONCLUSION: 1. Mild diverticulosis with no definite inflammatory change. 2. Small amount of gas in the anterior right ventricle likely iatrogenic. 3. Mild hepatic steatosis. 4. Unremarkable gallbladder. 5. Apparent atelectasis in the dependent portions of the lung bases. Marlon Jo MD PE at Discharge awake and alert, oriented x 3 anicteric lips, oral mucosa/gingiva with- blisters- drying up neck supple, no rigidity lungs- no rales regular rhythm abdomen soft, nontender right AC area- small ecchymoses, no induration bilateral hand- decrease swelling, good pulses, multiple superficial bush, looks like cuts, mild erythema , good peripheral pulses LE no edema gait steady Pt update on day of discharge advise on substance abuse - motivated afebrile taking po well no pain complains Hospital Course 52 years old admits to injecting powdered amphetamine on his right AC area- S/P Circulatory shock Likely septic. off vasopressor. Echo with EF 65-70%. known IVDU- recently injected 3 days ago- source ? bilateral cellulitis - hand with lots of bush - up and ambulating - currently on vancomycin and Zosyn - cultures negative so far for 4 days - WBC down - get ID consult for recommendations- any need for further antibotics Small amount of air in the right ventricle and aorta Seen by cardiothoracic surgery. - follow up with CTS. SANTOS- resolved - ff BMP - good po/voiding Painful oral blisters- - treat with magic mouthwash qid and monitor Elevated LFTs- trending down Liver ultrasound unremarkable. HCV positive. - trend LFTs. - outpt followup. Substance abuse - The pt has been counseled. Hand swelling- improved - doubt gout. DC Prednisone - PPx: DVT prophylaxis with heparin Up and ambulate- encourage Patient wasnt to go home DC with ID- no need for antibiotics. Pt Condition on Discharge: Stable Discharge Disposition: Discharge Home Discharge Time: <= 30 minutes Discharge Instructions DIET: Follow Instructions for: As Tolerated, No Restrictions Activities you can perform: Weight Bearing as Curtis Follow up Referrals: PCP Follow-up with PCP New Medications: Ulhvepju-Adamxedrwfvebif-Arqtvvmlu Liq (Magic Mouthwash Adult Liq) 120 Ml Susp 10 ML SWISH-SWAL QID for oral for 5 Days, Derrell Ramirez MD Jun 09, 2017 18:23
[2017-06-10] MEDS ORDERED: PHARMACY ORDERED LAB ONE (17:45)
== END 2017-06-09 19:33 | disposition home or self-care (01) | DRG 871 ==
LOC: NEPC 11:34 → NEDA 13:13 → HIMW 16:30 → N04A 06-07 17:47
PROVIDERS: ADMIT Family Medicine; ATTEND Family Medicine
PROC: 06HY33Z Insertion of Infusion Device into Lower Vein, Percutaneous Approach (ICD-10-PCS; principal; 2017-06-05)
DX: A41.9 Sepsis, unspecified organism (principal); R65.21 Severe sepsis with septic shock; N17.9 Acute kidney failure, unspecified; E87.2 Acidosis; L03.114 Cellulitis of left upper limb; L03.113 Cellulitis of right upper limb; F15.10 Other stimulant abuse, uncomplicated; K72.90 Hepatic failure, unspecified without coma; B19.20 Unspecified viral hepatitis C without hepatic coma; S00.522A Blister (nonthermal) of oral cavity, initial encounter; R79.89 Other specified abnormal findings of blood chemistry
CPT/HCPCS: 36556; 70450; 71045; 71250; 73130; 74176; 76705; 80048; 80053; 80074; 80202; 80307; 81001; 82550; 82552; 82805; 83036; 83605; 83690; 83735; 84100; 84439; 84443; 84484; 84550; 85007; 85025; 85027; 85610; 85652; 85730; 86140; 86850; 86900; 86901; 87040; 87086; 87641; 93005; 93306; 96365; C9113; J0610; J1644; J2543; J3370; J3475; J7030; J7040; J7050; J7120; J7512